=== PATIENT | male | born 1930 | race Caucasian/White ===

== ENCOUNTER 2016-10-18 16:09 | Inpatient (IN) | payer OTHER ==
--- NOTE | 2016-10-18 16:42 | PDOC ---
Attending Attestation - Resident Resident Name: Dee Gayle - ED Attending Attestation I have performed the following: I have examined & evaluated the patient, The case was reviewed & discussed with the resident, I agree w/resident's findings & plan, Exceptions are as noted - HPI HPI: 10/18/16 16:40 dizzy and lightheaded/ vitals stable - Physicial Exam PE: 10/18/16 16:41 non focal neuro exam - Medical Decision Making 10/18/16 16:[address] Arevalo's Assessment and Plan Discharge Disposition - Diagnosis Pre-syncope - Discharge Dispostion Condition at time of disposition: Unchanged/Unknown Last Admission D/C Date: 06/27/08 Admit: Yes
[2016-10-18 17:46] LABS: ALBUMIN 3.5 g/dl (3.4-5.0); ANION GAP 8 (8-16); BILIRUBIN,TOTAL 0.4 mg/dL (0.2-1.0); CALCIUM 8.7 mg/dL (8.5-10.1); CO2 27 mmol/L (21-32); CREATININE 1.4 mg/dL (0.7-1.3); GLUCOSE,RANDOM 127 mg/dL (74-106); SGOT/AST 25 U/L (15-37); SGPT/ALT 37 U/L (12-78)
[2016-10-18 17:47] LABS: ALK PHOS 78 U/L (45-117)
--- NOTE | 2016-10-18 18:55 | PDOC ---
History of Present Illness - General Chief Complaint: Weakness Stated Complaint: SYNCOPE/NEAR SYNCOPE Time Seen by Provider: 10/18/16 16:35 History Source: Patient, Family Exam Limitations: No Limitations - History of Present Illness Initial Comments: 86 yo male who was just seen in the ED and just discharged home with family returns with exacerbated lightheadedness and generalized weakness. He explains that his lightheadedness worsened in the car when they were about to leave the parking lot, and he also felt very weak on standing. He denies any chest pain, shortness of breath, numbness, tingling, focal weakness, difficulty swallowing, difficulty speaking, vision changes, or other recent symptoms. Please see this physician's prior HPI from today for more details. Past History - Past Medical History Allergies/Adverse Reactions: Allergies Allergy/AdvReac Type Severity Reaction Status Date / Time Penicillins Allergy Unknown Rash Verified 10/18/16 16:16 Home Medications: Ambulatory Orders Aspirin [ASA -] 81 mg PO DAILY 02/04/16 Biotin 5,000 mcg PO DAILY 02/04/16 Cholecalciferol (Vitamin D3) [Vitamin D3 -] 2,000 unit PO DAILY 02/04/16 Glucosamine/D3/Boswellia Molly [Osteo Bi-Flex Caplet] 1 each PO DAILY 02/04/16 Multivit-Min/FA/Lycopen/Lutein [Centrum Silver Tablet] 1 each PO DAILY 02/04/16 Simvastatin [Zocor -] 40 mg PO HS 02/04/16 Tamsulosin HCl [Flomax -] 0.4 mg PO DAILY 02/04/16 Vit A/Vit C/Vit E/Zinc/Copper [Preservision Areds Softgel] 1 each PO DAILY 02/03 Chlorthalidone 25 mg PO DAILY 10/18/16 Clonidine HCl 0.1 mg PO DAILY 10/18/16 Diclofenac Sodium [Diclofenac Sodium ER] 100 mg PO DAILY 10/18/16 Ramipril 10 mg PO DAILY 10/18/16 HTN: Yes Kidney Stones: Yes Thyroid Disease: Yes (H/O STONES) - Psycho/Social/Smoking Cessation Hx Anxiety: No Suicidal Ideation: No Smoking History: Never smoked Have you smoked in the past 12 months: No If you are a former smoker, when did you quit?: 50YRS AGO Hx Alcohol Use: No Drug/Substance Use Hx: No Substance Use Type: Alcohol Hx Substance Use Treatment: No Review of Systems - Review of Systems Constitutional: No: Chills, Fever, Unexplained wgt Loss HEENTM: No: Nose Congestion, Throat Pain Respiratory: No: Cough, Shortness of Breath Cardiac (ROS): No: Chest Pain, Palpitations ABD/GI: No: Constipated, Diarrhea, Nausea, Vomiting : No: Burning, Dysuria Musculoskeletal: No: Back Pain, Neck Pain Integumentary: No: Bruising, Rash Neurological: Yes: Weakness (generalized), Unsteady Gait (states d/t lightheadedness), Dizziness (lightheadedness). No: Headache, Numbness, Tingling Endocrine: No: Unexplained Weight Gain, Unexplained Weight Loss *Physical Exam - Vital Signs Last Vital Signs Temp Pulse Resp BP Pulse Ox 97.5 F L 55 L 19 160/67 97 10/18/16 16:16 10/18/16 17:12 10/18/16 16:16 10/18/16 16:16 10/18/16 17:12 - Physical Exam General Appearance: Yes: Nourished, Mild Distress, Other (very pleasant older male appears younger than stated age, appears a bit distraught with the recurrence of lightheadedness) HEENT: positive: EOMI, Normal Voice, Hearing Grossly Normal. negative: Scleral Icterus (R), Scleral Icterus (L), Nasal Congestion Neck: positive: Trachea midline, Supple. negative: Tender, Rigid Respiratory/Chest: positive: Lungs Clear, Normal Breath Sounds. negative: Respiratory Distress, Crackles, Rhonchi, Stridor, Wheezing Cardiovascular: positive: Regular Rhythm, Regular Rate. negative: Edema, Murmur Gastrointestinal/Abdominal: positive: Normal Bowel Sounds, Soft. negative: Tender, Organomegaly, Pulsatile Mass, Guarding Musculoskeletal: positive: Normal Inspection. negative: Decreased Range of Motion, Vertebral Tenderness Extremity: positive: Normal Capillary Refill, Normal Inspection, Normal Range of Motion. negative: Tender, Cyanosis Integumentary: positive: Normal Color, Dry, Warm. 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 negative: Facial Droop, Numbness , Sensory Deficit, Confused, Disoriented Heart Score/ECG Review - History History: Moderately suspicious - Electrocardiogram EKG: Normal - Age Age: >/= 65 - Troponin Troponin: </= normal limit #1 ECG reviewed & interpreted by me at: 17:00 Compared to previous ECG there are: No significant change NSR, rate of 66, mild LAD, poor R-wave progression, no ST-T changes ED Treatment Course - LABORATORY CBC & Chemistry Diagram: 10/20/16 06:20 10/20/16 06:20 - ADDITIONAL ORDERS Additional order review: Laboratory Results 10/18/16 10/18/16 17:05 16:49 Sodium 142 Potassium 4.1 Chloride 107 Carbon Dioxide 27 Anion Gap 8 BUN 33 H Creatinine 1.4 H Creat Clearance w eGFR 47.83 Random Glucose 127 H D Calcium 8.7 Total Bilirubin 0.4 AST 25 ALT 37 Alkaline Phosphatase 78 Troponin I < 0.02 Total Protein 6.0 L Albumin 3.5 Medical Decision Making - Medical Decision Making 86 yo male returns to the ED almost immediately after discharge with recurrence of lightheadedness in car. Unable to stand or walk unassisted now, which is far outside his baseline ( walks w/o walker or cane usually). Labs and EKG remain unremarkable, negative troponin and coags wnl, EKG unchanged. Due to acute onset intractable lightheadedness x hours today and inability to ambulate, Pt is admitted to obs for management. *DC/Admit/Observation/Transfer Diagnosis at time of Disposition: Lightheaded - Discharge Dispostion Condition at time of disposition: Unchanged/Unknown Admit: Yes - Attestations Physician Attestion: I, Dr. Dee Gayle, attest that this document has been prepared under my direction and personally reviewed by me in its entirety. I further attest, that it accurately reflects all work, treatment, procedures and medical decision -making performed by me.
[2016-10-18] MEDS ORDERED: BOSWELLIA SERRA PO SCH (22:15)
[2016-10-18] MEDS ORDERED: GLUCOSAMINE PO SCH (22:15)
[2016-10-18] MEDS ORDERED: PATIENT'S OWN MEDICATION (NON-FORMULARY) (Biotin [Biotin] 5,000 MCG) PO SCH (22:15)
[2016-10-18] MEDS ORDERED: [UNRECOGNIZED DRUG - OTHER] PO SCH (22:15)
[2016-10-18] MEDS ORDERED: D3 PO SCH (22:15)
[2016-10-18] MEDS ORDERED: PATIENT'S OWN MEDICATION (NON-FORMULARY) (Vit A/Vit C/Vit E/Zinc/Copper [Preservision Ared PO SCH (22:15)
[2016-10-18 22:18] VITALS: BMI 31.2
--- NOTE | 2016-10-18 22:30 | HP ---
Admitting History and Physical - Admission Chief Complaint: Dizziness History of Present Illness: 86 y/o male with PMH of HTN, hyperlipidemia, CAD and BPH, has been complaining of dizziness on and off for several months. He has had his hypertensive meds adjusted to avoid low BP and was prescribed Meclizine with inconsistent benefit. For the last few days the symptoms have worsened and are now intractable. There are no associated complaints. History Source: Patient, Medical Record Limitations to Obtaining History: No Limitations - Past Medical History Cardiovascular: Yes: CAD, HTN, Hyperlipdemia Renal/: Yes: BPH - Past Surgical History Past Surgical History: Yes: None - Smoking History Smoking history: Never smoked Have you smoked in the past 12 months: No If you are a former smoker, when did you quit?: 50YRS AGO - Alcohol/Substance Use Hx Alcohol Use: No Home Medications - Allergies Allergies/Adverse Reactions: Allergies Allergy/AdvReac Type Severity Reaction Status Date / Time Penicillins Allergy Unknown Rash Verified 10/18/16 16:16 - Home Medications Home Medications: Ambulatory Orders Aspirin [ASA -] 81 mg PO DAILY 02/04/16 Biotin 5,000 mcg PO DAILY 02/04/16 Cholecalciferol (Vitamin D3) [Vitamin D3 -] 2,000 unit PO DAILY 02/04/16 Glucosamine/D3/Boswellia Molly [Osteo Bi-Flex Caplet] 1 each PO DAILY 02/04/16 Multivit-Min/FA/Lycopen/Lutein [Centrum Silver Tablet] 1 each PO DAILY 02/04/16 Simvastatin [Zocor -] 40 mg PO HS 02/04/16 Tamsulosin HCl [Flomax -] 0.4 mg PO DAILY 02/04/16 Vit A/Vit C/Vit E/Zinc/Copper [Preservision Areds Softgel] 1 each PO DAILY 02/03 Chlorthalidone 25 mg PO DAILY 10/18/16 Clonidine HCl 0.1 mg PO DAILY 10/18/16 Diclofenac Sodium [Diclofenac Sodium ER] 100 mg PO DAILY 10/18/16 Ramipril 10 mg PO DAILY 10/18/16 Family Disease History - Family Disease History Family History: Unremarkable Review of Systems - Review of Systems Constitutional: reports: Weakness Eyes: reports: No Symptoms Cardiovascular: reports: No Symptoms Respiratory: reports: No Symptoms Gastrointestinal: reports: No Symptoms Neurological: reports: Other (Dizziness) Physical Examination Vital Signs: Vital Signs Temperature 98.0 F 10/18/16 22:07 Pulse Rate 73 10/18/16 19:19 Respiratory Rate 18 10/18/16 22:07 Blood Pressure 160/91 10/18/16 19:19 O2 Sat by Pulse Oximetry (%) 98 10/18/16 19:19 Constitutional: Yes: No Distress Neck: Yes: Supple Cardiovascular: Yes: Regular Rate and Rhythm, S1, S2 Respiratory: Yes: CTA Bilaterally Gastrointestinal: Yes: Normal Bowel Sounds, Soft Neurological: Yes: Alert, Oriented. No: Loss of Sensation ...Motor Strength: WNL Imaging - Results Chest X-ray: Report Reviewed Cat Scan: Report Reviewed Problem List - Problems (1) Dizziness Assessment/Plan: Admit to rule out CVA/TIA, neuro evaluation Code(s): R42 - DIZZINESS AND GIDDINESS (2) HTN (hypertension) Assessment/Plan: Controlled, continue current meds Code(s): I10 - ESSENTIAL (PRIMARY) HYPERTENSION Qualifiers: Hypertension type: essential hypertension Qualified Code(s): I10 - Essential (primary) hypertension (3) CAD (coronary artery disease) Assessment/Plan: Asymptomatic Code(s): I25.10 - ATHSCL HEART DISEASE OF [place] CORONARY ARTERY W/O ANG PCTRS Qualifiers: Coronary Disease-Associated Artery/Lesion type: [place] artery (4) BPH (benign prostatic hyperplasia) Assessment/Plan: Cont Flomax Code(s): N40.0 - BENIGN PROSTATIC HYPERPLASIA WITHOUT LOWER URINRY TRACT SYMP
[2016-10-18] MEDS: SODIUM CHLORIDE 1,000 ML IV SCH (23:13)
[2016-10-18] MEDS ORDERED: ONDANSETRON 4 MG/2 ML VIAL IVPB PRN (23:32)
[2016-10-19 08:00] LABS: MCH 31.9 pg (25.7-33.7); MCHC 33.8 g/dl (32.0-35.9); MEAN CELL VOLUME 94.5 fl (80-96); MEAN PLT VOLUME 10.7 fl (7.5-11.1); PLATELET COUNT 113 K/MM3 (134-434); RDW 13.8 % (11.9-15.9); WHITE BLOOD COUNT 6.8 K/mm3 (4.0-10.0)
[2016-10-19 08:20] LABS: ALBUMIN 3.3 g/dl (3.4-5.0); ALK PHOS 71 U/L (45-117); ANION GAP 8 (8-16); BILIRUBIN,TOTAL 0.4 mg/dL (0.2-1.0); CALCIUM 8.2 mg/dL (8.5-10.1); CO2 27 mmol/L (21-32); CREATININE 1.1 mg/dL (0.7-1.3); GLUCOSE,RANDOM 97 mg/dL (74-106); SGOT/AST 19 U/L (15-37); SGPT/ALT 33 U/L (12-78); TOT PROT 5.6 g/dl (6.4-8.2)
[2016-10-19] MEDS: TAMSULOSIN HCL 0.4 MG CAP.ER.24H (FP) PO SCH (09:31)
[2016-10-19] MEDS: ENOXAPARIN NA (PORCINE) 30 MG/0.3 ML DISP.SYRIN SQ SCH (09:32)
[2016-10-19] MEDS: RAMIPRIL 5 MG CAPSULE (FP) PO SCH (09:32)
[2016-10-19] MEDS: cloNIDine HCL 0.1 MG TABLET PO SCH (09:32)
[2016-10-19] MEDS: MULTIVITAMINS THER W-MINERALS COMBO TABLET (FP) PO SCH (09:32)
[2016-10-19] MEDS: CHOLECALCIFEROL (VITAMIN D3) 1,000 UNIT TABLET (FP) PO SCH (09:32)
[2016-10-19] MEDS: ASPIRIN 81 MG CHEWABLE TABLETS PO SCH (09:32)
[2016-10-19] MEDS: DICLOFENAC SODIUM 25 MG TABLET.DR PO SCH ×2 (09:35→10:51)
[2016-10-19] MEDS ORDERED: ACETAMINOPHEN 325 MG TABLET (FP) PO PRN (14:20)
--- NOTE | 2016-10-19 15:51 | CONSULT ---
Consult - text type - Consultation Consultation Note: NEUROLOGY CONSULTATION is greatly appreciated: Events and CT scan reviewed. Discussed with his daughter. 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 PMH sig for HTN, chol, ASHD, BPH on ramipril, ASA, clonidine, tamsulosin and atorvastatin. H/O vertigo in the past but NOT recently active. 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 Yesterday in PT he was supine and doing strengthening exercises (involving Valsalva) when he developed dizziness and nausea. Couldn't sit or walk. Was taken by wheelchair and transferred to our ER where CT was neg and he was discharged to home. However, he was too unsteady to transfer to the car and family returned him to the ER. Patient developed occipital, pressing, headaches which persist. Now, c/o "wooziness," unsteadiness and occipital headache. Nausea has resolved. MYRIAM: No bruits. Cor reg. NEURO: MS/Speech: Normal CN II-XII: Nystagmus on left gaze. Gag OK Motor: No drift or tremor. Normal strength. Reduced KJ's absent AJ's. Downgoing toes. Coord: Min R FTN dystaxia Sensory: Decreased vibration to the ankles. Gait: Stands with assistance. Wide-based stance. Unsteady, R leg stiff. Retropulsive. IMP: Possible posterior fossa/cerebellar CVA Peripheral neuropathy vs LS spinal stenosis. SUGGEST: MRI of brain (C-): attention posterior fossa Cont. ASA for now. OOB to chair with assist Hector (in patient) crescencio on Friday./ Thank you very much, Sarkis Llanos MD
--- NOTE | 2016-10-19 16:41 | PN ---
Progress Note, Physician Chief Complaint: Feels better - Current Medication List Current Medications: Active Medications Acetaminophen (Tylenol -) 1,000 mg PO Q6H PRN PRN Reason: FEVER OR PAIN Aspirin (Asa -) 81 mg PO DAILY [facility] Last Admin: 10/19/16 09:32 Dose: 81 mg Atorvastatin Calcium (Lipitor -) 20 mg PO [facility] Cholecalciferol (Vitamin D3 -) 2,000 unit PO DAILY [facility] Last Admin: 10/19/16 09:32 Dose: 2,000 unit Clonidine (Catapres -) 0.1 mg PO DAILY [facility] Last Admin: 10/19/16 09:32 Dose: 0.1 mg Diclofenac Sodium (Voltaren -) 100 mg PO DAILY [facility] Last Admin: 10/19/16 10:51 Dose: Not Given Enoxaparin Sodium (Lovenox -) 30 mg SQ DAILY [facility] Last Admin: 10/19/16 09:32 Dose: 30 mg Sodium Chloride (Normal Saline -) 1,000 mls @ 75 mls/hr IV ASDIR [facility] Last Admin: 10/18/16 23:13 Dose: 75 mls/hr Multivitamins/Minerals (Theragran-M) 1 each PO DAILY [facility] Last Admin: 10/19/16 09:32 Dose: 1 each Non-Formulary Medication (Biotin [Biotin]) 5,000 mcg PO ASDIR [facility] Non-Formulary Medication (Glucosamine/D3/Boswellia Molly [Osteo Bi-Flex Caplet] ) 1 each PO [facility] Non-Formulary Medication (Vit A/Vit C/Vit E/Zinc/Copper [Preservision Areds Softgel]) 1 each PO [facility] Ondansetron HCl (Zofran Injection) 4 mg IVPB Q8H PRN PRN Reason: NAUSEA AND/OR VOMITING Ramipril (Altace -) 10 mg PO DAILY [facility] Last Admin: 10/19/16 09:32 Dose: 10 mg Tamsulosin HCl (Flomax -) 0.4 mg PO DAILY@0830 [facility] Last Admin: 10/19/16 09:31 Dose: 0.4 mg - Objective Vital Signs: Vital Signs Temperature 97.9 F 10/19/16 09:20 Pulse Rate 70 10/19/16 09:20 Respiratory Rate 20 10/19/16 09:20 Blood Pressure 129/68 10/19/16 09:20 O2 Sat by Pulse Oximetry (%) 98 10/19/16 09:00 Constitutional: Yes: No Distress Neck: Yes: Supple Cardiovascular: Yes: Regular Rate and Rhythm, S1, S2 Respiratory: Yes: CTA Bilaterally Gastrointestinal: Yes: Normal Bowel Sounds, Soft Neurological: Yes: Alert, Oriented. No: Loss of Sensation ...Motor Strength: WNL Labs: CBC, BMP 10/19/16 06:00 10/19/16 06:00 Problem List - Problems (1) Dizziness Assessment/Plan: Seen by neuro, further imaging ordered Code(s): R42 - DIZZINESS AND GIDDINESS (2) HTN (hypertension) Assessment/Plan: Controlled, continue current meds Code(s): I10 - ESSENTIAL (PRIMARY) HYPERTENSION Qualifiers: Hypertension type: essential hypertension Qualified Code(s): I10 - Essential (primary) hypertension
[2016-10-19] MEDS: ACETAMINOPHEN 500 MG TABLET (FP) PO PRN (18:18)
[2016-10-19] MEDS: ATORVASTATIN CA 20 MG TABLET (FP) PO SCH (21:25)
[2016-10-20] MEDS: SODIUM CHLORIDE 1,000 ML IV SCH ×2 (02:34→21:48)
[2016-10-20 07:44] LABS: MCH 31.7 pg (25.7-33.7); MCHC 33.3 g/dl (32.0-35.9); MEAN CELL VOLUME 95.2 fl (80-96); MEAN PLT VOLUME 10.6 fl (7.5-11.1); PLATELET COUNT 120 K/MM3 (134-434); RDW 13.7 % (11.9-15.9); WHITE BLOOD COUNT 6.7 K/mm3 (4.0-10.0)
[2016-10-20 08:14] LABS: ALBUMIN 3.4 g/dl (3.4-5.0); CALCIUM 8.6 mg/dL (8.5-10.1)
[2016-10-20 08:19] LABS: ALK PHOS 70 U/L (45-117); ANION GAP 6 (8-16); BILIRUBIN,TOTAL 0.5 mg/dL (0.2-1.0); CO2 29 mmol/L (21-32); GLUCOSE,RANDOM 96 mg/dL (74-106); SGOT/AST 17 U/L (15-37); SGPT/ALT 34 U/L (12-78); TOT PROT 5.8 g/dl (6.4-8.2)
[2016-10-20] MEDS: cloNIDine HCL 0.1 MG TABLET PO SCH (10:33)
[2016-10-20] MEDS: MULTIVITAMINS THER W-MINERALS COMBO TABLET (FP) PO SCH (10:33)
[2016-10-20] MEDS: RAMIPRIL 5 MG CAPSULE (FP) PO SCH (10:33)
[2016-10-20] MEDS: ENOXAPARIN NA (PORCINE) 30 MG/0.3 ML DISP.SYRIN SQ SCH (10:33)
[2016-10-20] MEDS: ASPIRIN 81 MG CHEWABLE TABLETS PO SCH (10:33)
[2016-10-20] MEDS: TAMSULOSIN HCL 0.4 MG CAP.ER.24H (FP) PO SCH (10:33)
[2016-10-20] MEDS: CHOLECALCIFEROL (VITAMIN D3) 1,000 UNIT TABLET (FP) PO SCH (10:34)
[2016-10-20] MEDS: DICLOFENAC SODIUM 25 MG TABLET.DR PO SCH (10:34)
[2016-10-20] MEDS: ACETAMINOPHEN 500 MG TABLET (FP) PO PRN (10:39)
--- NOTE | 2016-10-20 12:05 | PN ---
Progress Note, Physician Chief Complaint: Had chest pain today - Current Medication List Current Medications: Active Medications Acetaminophen (Tylenol -) 1,000 mg PO Q6H PRN PRN Reason: FEVER OR PAIN Last Admin: 10/20/16 10:39 Dose: 1,000 mg Aspirin (Asa -) 81 mg PO DAILY [facility] Last Admin: 10/20/16 10:33 Dose: 81 mg Atorvastatin Calcium (Lipitor -) 20 mg PO HS [facility] Last Admin: 10/19/16 21:25 Dose: 20 mg Cholecalciferol (Vitamin D3 -) 2,000 unit PO DAILY [facility] Last Admin: 10/20/16 10:34 Dose: 2,000 unit Clonidine (Catapres -) 0.1 mg PO DAILY [facility] Last Admin: 10/20/16 10:33 Dose: 0.1 mg Diclofenac Sodium (Voltaren -) 100 mg PO DAILY [facility] Last Admin: 10/20/16 10:34 Dose: Not Given Enoxaparin Sodium (Lovenox -) 30 mg SQ DAILY [facility] Last Admin: 10/20/16 10:33 Dose: 30 mg Sodium Chloride (Normal Saline -) 1,000 mls @ 75 mls/hr IV ASDIR [facility] Last Admin: 10/20/16 02:34 Dose: Not Given Multivitamins/Minerals (Theragran-M) 1 each PO DAILY [facility] Last Admin: 10/20/16 10:33 Dose: 1 each Ondansetron HCl (Zofran Injection) 4 mg IVPB Q8H PRN PRN Reason: NAUSEA AND/OR VOMITING Ramipril (Altace -) 10 mg PO DAILY [facility] Last Admin: 10/20/16 10:33 Dose: 10 mg Tamsulosin HCl (Flomax -) 0.4 mg PO DAILY@0830 [facility] Last Admin: 10/20/16 10:33 Dose: 0.4 mg - Objective Vital Signs: Vital Signs Temperature 97.8 F 10/20/16 07:33 Pulse Rate 52 L 10/20/16 07:33 Respiratory Rate 20 10/20/16 07:33 Blood Pressure 148/82 10/20/16 07:33 O2 Sat by Pulse Oximetry (%) 98 10/19/16 22:00 Constitutional: Yes: No Distress Neck: Yes: Supple Cardiovascular: Yes: Regular Rate and Rhythm, S1, S2 Respiratory: Yes: CTA Bilaterally Gastrointestinal: Yes: Normal Bowel Sounds, Soft Neurological: Yes: Alert, Oriented. No: Loss of Sensation Labs: CBC, BMP 10/20/16 06:20 10/20/16 06:20 Problem List - Problems (1) Dizziness Assessment/Plan: MRI unremarkable, neuro f/u in AM Code(s): R42 - DIZZINESS AND GIDDINESS (2) CAD (coronary artery disease) Assessment/Plan: Had chest pain today, lasting a few seconds, toponin negative. EKG unremarkable , will get chesy X ray, will get cardiology eval Code(s): I25.10 - ATHSCL HEART DISEASE OF [place] CORONARY ARTERY W/O ANG PCTRS Qualifiers: Coronary Disease-Associated Artery/Lesion type: [place] artery [place] vs. transplanted heart: [place] heart Associated angina: without angina Qualified Code(s): I25.10 - Atherosclerotic heart disease of [place] coronary artery without angina pectoris
[2016-10-20 17:27] LABS: TROPONIN I 0.02 ng/ml (0.00-0.05)
[2016-10-20] MEDS: ATORVASTATIN CA 20 MG TABLET (FP) PO SCH (21:48)
[2016-10-21 07:07] LABS: MCH 31.7 pg (25.7-33.7); MCHC 33.6 g/dl (32.0-35.9); MEAN CELL VOLUME 94.3 fl (80-96); MEAN PLT VOLUME 10.3 fl (7.5-11.1); PLATELET COUNT 117 K/MM3 (134-434); RDW 13.5 % (11.9-15.9); WHITE BLOOD COUNT 7.2 K/mm3 (4.0-10.0)
[2016-10-21 07:28] LABS: ALBUMIN 3.3 g/dl (3.4-5.0); ANION GAP 7 (8-16); BILIRUBIN,TOTAL 0.5 mg/dL (0.2-1.0); CALCIUM 8.5 mg/dL (8.5-10.1); CO2 27 mmol/L (21-32); CREATININE 0.9 mg/dL (0.7-1.3); GLUCOSE,RANDOM 91 mg/dL (74-106); SGOT/AST 20 U/L (15-37); SGPT/ALT 32 U/L (12-78); TOT PROT 5.5 g/dl (6.4-8.2)
[2016-10-21 07:29] LABS: ALK PHOS 65 U/L (45-117)
[2016-10-21] MEDS: TAMSULOSIN HCL 0.4 MG CAP.ER.24H (FP) PO SCH (08:45)
[2016-10-21] MEDS ORDERED: PT OWN MED DRAWER 7, Y5N ONE (09:28)
[2016-10-21] MEDS: cloNIDine HCL 0.1 MG TABLET PO SCH (09:33)
[2016-10-21] MEDS: RAMIPRIL 5 MG CAPSULE (FP) PO SCH (09:33)
[2016-10-21] MEDS: ASPIRIN 81 MG CHEWABLE TABLETS PO SCH (09:33)
[2016-10-21] MEDS: CHOLECALCIFEROL (VITAMIN D3) 1,000 UNIT TABLET (FP) PO SCH (09:33)
[2016-10-21] MEDS: MULTIVITAMINS THER W-MINERALS COMBO TABLET (FP) PO SCH (09:33)
[2016-10-21] MEDS: ENOXAPARIN NA (PORCINE) 30 MG/0.3 ML DISP.SYRIN SQ SCH (09:33)
[2016-10-21] MEDS: DICLOFENAC SODIUM 25 MG TABLET.DR PO SCH (09:34)
--- NOTE | 2016-10-21 09:51 | EKG ---
Test Reason : Blood Pressure : / mmHG Vent. Rate : 066 BPM Atrial Rate : 066 BPM P-R Int : 216 ms QRS Dur : 092 ms QT Int : 408 ms P-R-T Axes : 040 -38 043 degrees QTc Int : 427 ms SINUS RHYTHM WITH 1ST DEGREE A-V BLOCK LEFT AXIS DEVIATION CANNOT RULE OUT SEPTAL INFARCT (CITED ON OR BEFORE 05-FEB-2007) ABNORMAL ECG WHEN COMPARED WITH ECG OF 18-OCT-2016 12:37, NO SIGNIFICANT CHANGE WAS FOUND Confirmed by MONICA WILLIS MD ([id number]) on 10/21/2016 9:51:10 AM Referred By: Confirmed By:MONICA WILLIS MD
--- NOTE | 2016-10-21 10:17 | CON.CARD ---
Consult Consult Specialty:: Cardiology Referred by:: Dr. 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 H/O vertigo in the past but NOT recently active. 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 He was referred from PT he was supine and doing strengthening exercises ( involving Valsalva) when he developed dizziness, diaphioesis, nausea w/o emesis or true syncope. He was taken by wheelchair and transferred to ER where CT was neg and he was discharged to home, but returned too unsteady to transfer to the car and family returned him to the ER. He also reports progressive dyspnea on exertion and exercise intolerance over last several months. - History Source History Provided By: Patient Limitations to Obtaining History: No Limitations - Past Medical History Cardio/Vascular: Yes: CAD, HTN, Hyperlipdemia Renal/: Yes: BPH - Past Surgical History Past Surgical History: Yes: None - Alcohol/Substance Use Hx Alcohol Use: No - Smoking History Smoking history: Never smoked Have you smoked in the past 12 months: No If you are a former smoker, when did you quit?: 50YRS AGO Home Medications - Allergies Allergies/Adverse Reactions: Allergies Allergy/AdvReac Type Severity Reaction Status Date / Time Penicillins Allergy Unknown Rash Verified 10/18/16 16:16 - Home Medications Home Medications: Ambulatory Orders Aspirin [ASA -] 81 mg PO DAILY 02/04/16 Biotin 5,000 mcg PO DAILY 02/04/16 Cholecalciferol (Vitamin D3) [Vitamin D3 -] 2,000 unit PO DAILY 02/04/16 Glucosamine/D3/Boswellia Molly [Osteo Bi-Flex Caplet] 1 each PO DAILY 02/04/16 Multivit-Min/FA/Lycopen/Lutein [Centrum Silver Tablet] 1 each PO DAILY 02/04/16 Simvastatin [Zocor -] 40 mg PO HS 02/04/16 Tamsulosin HCl [Flomax -] 0.4 mg PO DAILY 02/04/16 Vit A/Vit C/Vit E/Zinc/Copper [Preservision Areds Softgel] 1 each PO DAILY 02/03 Chlorthalidone 25 mg PO DAILY 10/18/16 Clonidine HCl 0.1 mg PO DAILY 10/18/16 Diclofenac Sodium [Diclofenac Sodium ER] 100 mg PO DAILY 10/18/16 Ramipril 10 mg PO DAILY 10/18/16 Review of Systems - Review of Systems Constitutional: reports: Diaphoresis Gastrointestinal: reports: Nausea Neurological: reports: Dizziness Vital Signs: Vital Signs Temperature 97.4 F L 10/21/16 07:14 Pulse Rate 49 L 10/21/16 07:14 Respiratory Rate 20 10/21/16 07:14 Blood Pressure 157/79 10/21/16 07:14 O2 Sat by Pulse Oximetry (%) 98 10/20/16 20:45 Constitutional: Yes: No Distress, Calm Neck: Yes: Supple Respiratory: Yes: Regular, Diminished Gastrointestinal: Yes: Normal Bowel Sounds, Soft, Abdomen, Obese Cardiovascular: Yes: Regular Rate and Rhythm JVD: No Carotid Bruit: No Heart Sounds: Yes: S1, S2 Edema: No - Other Data Labs, Other Data: CBC, BMP 10/21/16 05:35 10/21/16 05:35 Troponin, BNP 10/20/16 16:30 Troponin I 0.02 Troponin, BNP 10/20/16 16:30 Troponin I 0.02 Imaging - Results Chest X-ray: Report Reviewed (NAD) MRI: Report Reviewed (Brain MRI: No stroke) Problem List - Problems (1) HTN (hypertension) Code(s): I10 - ESSENTIAL (PRIMARY) HYPERTENSION Qualifiers: Hypertension type: essential hypertension Qualified Code(s): I10 - Essential (primary) hypertension (2) Pre-syncope Code(s): R55 - SYNCOPE AND COLLAPSE (3) Hyperlipidemia Code(s): E78.5 - HYPERLIPIDEMIA, UNSPECIFIED Qualifiers: Hyperlipidemia type: pure hypercholesterolemia Qualified Code(s): E78.00 - Pure hypercholesterolemia, unspecified; E78.0 - Pure hypercholesterolemia (4) Exertional dyspnea Code(s): R06.09 - OTHER FORMS OF DYSPNEA Assessment/Plan 1. Dizziness with typical prodromal sxs for vasovagal etiology, ruled out for possible posterior fossa/cerebellar CVA 2. Peripheral neuropathy vs LS spinal stenosis. 3. Hypertensive cardiovascular disease 4. Hyperlipidemia 5. Dyspnea on exertion P:1. ASA 81 qd, Lipitor 20 qhs, clonidine 0.1 qd, Altace 10 qd, chlorthalidone d /sabine 2. F/u echocardiogram to assess ventricular and valve fxn, spacer type bar and segment r/ o pause, pharm stress r/o ischemia, may be performed as outpatient 3. Check orthostatic vital signs, reviewed abortive maneuvers to undertake once prodromal sxs have been experienced 4. Further recommendations to follow, thank you for consultative opportunity
--- NOTE | 2016-10-21 12:38 | PN ---
Progress Note, Physician Chief Complaint: No new complaints - Current Medication List Current Medications: Active Medications Acetaminophen (Tylenol -) 1,000 mg PO Q6H PRN PRN Reason: FEVER OR PAIN Last Admin: 10/20/16 10:39 Dose: 1,000 mg Aspirin (Asa -) 81 mg PO DAILY [facility] Last Admin: 10/21/16 09:33 Dose: 81 mg Atorvastatin Calcium (Lipitor -) 20 mg PO HS [facility] Last Admin: 10/20/16 21:48 Dose: 20 mg Cholecalciferol (Vitamin D3 -) 2,000 unit PO DAILY [facility] Last Admin: 10/21/16 09:33 Dose: 2,000 unit Clonidine (Catapres -) 0.1 mg PO DAILY [facility] Last Admin: 10/21/16 09:33 Dose: 0.1 mg Diclofenac Sodium (Voltaren -) 100 mg PO DAILY [facility] Last Admin: 10/21/16 09:34 Dose: 100 mg Enoxaparin Sodium (Lovenox -) 30 mg SQ DAILY [facility] Last Admin: 10/21/16 09:33 Dose: 30 mg Sodium Chloride (Normal Saline -) 1,000 mls @ 75 mls/hr IV ASDIR [facility] Last Admin: 10/20/16 21:48 Dose: 75 mls/hr Multivitamins/Minerals (Theragran-M) 1 each PO DAILY [facility] Last Admin: 10/21/16 09:33 Dose: 1 each Ondansetron HCl (Zofran Injection) 4 mg IVPB Q8H PRN PRN Reason: NAUSEA AND/OR VOMITING Ramipril (Altace -) 10 mg PO DAILY [facility] Last Admin: 10/21/16 09:33 Dose: 10 mg Tamsulosin HCl (Flomax -) 0.4 mg PO DAILY@0830 [facility] Last Admin: 10/21/16 08:45 Dose: 0.4 mg - Objective Vital Signs: Vital Signs Temperature 97.4 F L 10/21/16 07:14 Pulse Rate 49 L 10/21/16 07:14 Respiratory Rate 20 10/21/16 07:14 Blood Pressure 157/79 10/21/16 07:14 O2 Sat by Pulse Oximetry (%) 98 10/20/16 20:45 Constitutional: Yes: No Distress Neck: Yes: Supple Cardiovascular: Yes: Regular Rate and Rhythm, S1, S2 Respiratory: Yes: CTA Bilaterally Gastrointestinal: Yes: Normal Bowel Sounds, Soft Neurological: Yes: Alert, Oriented Labs: CBC, BMP 10/21/16 05:35 10/21/16 05:35 Problem List - Problems (1) Dizziness Assessment/Plan: MRI unremarkable, neuro f/u in AM Code(s): R42 - DIZZINESS AND GIDDINESS (2) CAD (coronary artery disease) Assessment/Plan: Echo shows diastolic dysfunction, seen by cardiology Code(s): I25.10 - ATHSCL HEART DISEASE OF [place] CORONARY ARTERY W/O ANG PCTRS Qualifiers: Coronary Disease-Associated Artery/Lesion type: [place] artery [place] vs. transplanted heart: [place] heart Associated angina: without angina Qualified Code(s): I25.10 - Atherosclerotic heart disease of [place] coronary artery without angina pectoris
[2016-10-21] MEDS: ACETAMINOPHEN 500 MG TABLET (FP) PO PRN (16:31)
[2016-10-21] MEDS: ATORVASTATIN CA 20 MG TABLET (FP) PO SCH (21:21)
[2016-10-21] MEDS: SODIUM CHLORIDE 1,000 ML IV SCH (21:22)
[2016-10-22 07:39] LABS: MCH 31.7 pg (25.7-33.7); MCHC 33.8 g/dl (32.0-35.9); MEAN CELL VOLUME 93.8 fl (80-96); MEAN PLT VOLUME 10.2 fl (7.5-11.1); PLATELET COUNT 112 K/MM3 (134-434); RDW 13.5 % (11.9-15.9); WHITE BLOOD COUNT 6.8 K/mm3 (4.0-10.0)
[2016-10-22 07:55] LABS: CALCIUM 8.2 mg/dL (8.5-10.1)
[2016-10-22 08:02] LABS: ALBUMIN 3.2 g/dl (3.4-5.0); ALK PHOS 66 U/L (45-117); ANION GAP 5 (8-16); BILIRUBIN,TOTAL 0.5 mg/dL (0.2-1.0); CO2 28 mmol/L (21-32); GLUCOSE,RANDOM 89 mg/dL (74-106); SGOT/AST 15 U/L (15-37); SGPT/ALT 29 U/L (12-78); TOT PROT 5.4 g/dl (6.4-8.2)
[2016-10-22] MEDS ORDERED: PT OWN MED DRAWER 7, Y5N ONE (09:04)
[2016-10-22] MEDS: RAMIPRIL 5 MG CAPSULE (FP) PO SCH (09:17)
[2016-10-22] MEDS: MULTIVITAMINS THER W-MINERALS COMBO TABLET (FP) PO SCH (09:17)
[2016-10-22] MEDS: CHOLECALCIFEROL (VITAMIN D3) 1,000 UNIT TABLET (FP) PO SCH (09:17)
[2016-10-22] MEDS: ENOXAPARIN NA (PORCINE) 30 MG/0.3 ML DISP.SYRIN SQ SCH (09:18)
[2016-10-22] MEDS: TAMSULOSIN HCL 0.4 MG CAP.ER.24H (FP) PO SCH (09:18)
[2016-10-22] MEDS: ASPIRIN 81 MG CHEWABLE TABLETS PO SCH (09:18)
[2016-10-22] MEDS: cloNIDine HCL 0.1 MG TABLET PO SCH (09:18)
[2016-10-22] MEDS: DICLOFENAC SODIUM 25 MG TABLET.DR PO SCH (10:41)
--- NOTE | 2016-10-22 11:31 | PN ---
Progress Note (short form) - Note Progress Note: PULMONARY CONSULTATION DICTATED 10/22/16 IMP DYSPNEA ? ASHD,DIASTOLIC DYSFUNCTION PULMONARY HTN HTN NEAR SYNCOPE HYPERCHOLESTEROLEMIA [place] ON CPAP PLAN CONT CURRENT CARDIAC MEDS STRESS TEST CPAP D-DIMER DR BRAND Problem List - Problems (1) BPH (benign prostatic hyperplasia) Code(s): N40.0 - BENIGN PROSTATIC HYPERPLASIA WITHOUT LOWER URINRY TRACT SYMP (2) CAD (coronary artery disease) Code(s): I25.10 - ATHSCL HEART DISEASE OF [place] CORONARY ARTERY W/O ANG PCTRS Qualifiers: Coronary Disease-Associated Artery/Lesion type: [place] artery [place] vs. transplanted heart: [place] heart Associated angina: without angina Qualified Code(s): I25.10 - Atherosclerotic heart disease of [place] coronary artery without angina pectoris (3) Dizziness Code(s): R42 - DIZZINESS AND GIDDINESS (4) HTN (hypertension) Code(s): I10 - ESSENTIAL (PRIMARY) HYPERTENSION Qualifiers: Hypertension type: essential hypertension Qualified Code(s): I10 - Essential (primary) hypertension (5) Hyperlipidemia Code(s): E78.5 - HYPERLIPIDEMIA, UNSPECIFIED Qualifiers: Hyperlipidemia type: pure hypercholesterolemia Qualified Code(s): E78.00 - Pure hypercholesterolemia, unspecified; E78.0 - Pure hypercholesterolemia (6) Pre-syncope Code(s): R55 - SYNCOPE AND COLLAPSE (7) Pulmonary hypertension Code(s): I27.2 - OTHER SECONDARY PULMONARY HYPERTENSION (8) Exertional dyspnea Code(s): R06.09 - OTHER FORMS OF DYSPNEA (9) Diastolic dysfunction Code(s): I51.9 - HEART DISEASE, UNSPECIFIED
--- NOTE | 2016-10-22 12:20 | PN ---
Progress Note, Physician Chief Complaint: Events noted Not in distress this am History of Present Illness: Patient was seen and examined. Awake and alert. Chart was reviewed Less shortness of breath. Denies chest pain or palpitations Ambulated this am during physical therapy - Current Medication List Current Medications: Active Medications Acetaminophen (Tylenol -) 1,000 mg PO Q6H PRN PRN Reason: FEVER OR PAIN Last Admin: 10/21/16 16:31 Dose: 1,000 mg Aspirin (Asa -) 81 mg PO DAILY [facility] Last Admin: 10/22/16 09:18 Dose: 81 mg Atorvastatin Calcium (Lipitor -) 20 mg PO HS [facility] Last Admin: 10/21/16 21:21 Dose: 20 mg Cholecalciferol (Vitamin D3 -) 2,000 unit PO DAILY [facility] Last Admin: 10/22/16 09:17 Dose: 2,000 unit Clonidine (Catapres -) 0.1 mg PO DAILY [facility] Last Admin: 10/22/16 09:18 Dose: 0.1 mg Diclofenac Sodium (Voltaren -) 100 mg PO DAILY [facility] Last Admin: 10/22/16 10:41 Dose: 100 mg Enoxaparin Sodium (Lovenox -) 30 mg SQ DAILY [facility] Last Admin: 10/22/16 09:18 Dose: 30 mg Sodium Chloride (Normal Saline -) 1,000 mls @ 75 mls/hr IV ASDIR [facility] Last Admin: 10/21/16 21:22 Dose: 75 mls/hr Multivitamins/Minerals (Theragran-M) 1 each PO DAILY [facility] Last Admin: 10/22/16 09:17 Dose: 1 each Ondansetron HCl (Zofran Injection) 4 mg IVPB Q8H PRN PRN Reason: NAUSEA AND/OR VOMITING Ramipril (Altace -) 10 mg PO DAILY [facility] Last Admin: 10/22/16 09:17 Dose: 10 mg Tamsulosin HCl (Flomax -) 0.4 mg PO DAILY@0830 [facility] Last Admin: 10/22/16 09:18 Dose: Not Given - Objective Vital Signs: Vital Signs Temperature 98.2 F 10/22/16 09:19 Pulse Rate 73 10/22/16 09:19 Respiratory Rate 22 10/22/16 09:19 Blood Pressure 157/68 10/22/16 09:19 O2 Sat by Pulse Oximetry (%) 96 10/21/16 21:00 Neck: Yes: Supple Cardiovascular: Yes: Regular Rate and Rhythm, S1, S2 Respiratory: Yes: Diminished Gastrointestinal: Yes: Normal Bowel Sounds, Soft. No: Tenderness Edema: No Additional Findings/Remarks: - Review of Systems Constitutional: denies: Chills, Fever Cardiovascular: denies: Chest Pain. denies: Palpitations, (+) Shortness of Breath - improved Respiratory: denies: Cough, Hemoptysis, Orthopnea, PND, (+) SOB, SOB on Exertion - improved Gastrointestinal: denies: Nausea, Vomiting. denies: Abdominal Pain, Constipation, Diarrhea, Melena, Rectal Bleeding Neurological: denies: Dizziness, Headache, Seizure, Syncope Labs: CBC, BMP 10/22/16 05:35 10/22/16 05:35 - ....Imaging Other: Report Reviewed (Echocardiography revealed normal left ventricular systolic function, impaired relaxation with diastolic dysfunction, mild pulmonary HTN, mild TR and moderate AR) Problem List - Problems (1) CAD (coronary artery disease) Code(s): I25.10 - ATHSCL HEART DISEASE OF [place] CORONARY ARTERY W/O ANG PCTRS Qualifiers: Coronary Disease-Associated Artery/Lesion type: [place] artery [place] vs. transplanted heart: [place] heart Associated angina: without angina Qualified Code(s): I25.10 - Atherosclerotic heart disease of [place] coronary artery without angina pectoris (2) Diastolic dysfunction Code(s): I51.9 - HEART DISEASE, UNSPECIFIED (3) Dizziness Code(s): R42 - DIZZINESS AND GIDDINESS (4) Exertional dyspnea Code(s): R06.09 - OTHER FORMS OF DYSPNEA (5) HTN (hypertension) Code(s): I10 - ESSENTIAL (PRIMARY) HYPERTENSION Qualifiers: Hypertension type: essential hypertension Qualified Code(s): I10 - Essential (primary) hypertension (6) Hyperlipidemia Code(s): E78.5 - HYPERLIPIDEMIA, UNSPECIFIED Qualifiers: Hyperlipidemia type: pure hypercholesterolemia Qualified Code(s): E78.00 - Pure hypercholesterolemia, unspecified; E78.0 - Pure hypercholesterolemia (7) Pulmonary hypertension Code(s): I27.2 - OTHER SECONDARY PULMONARY HYPERTENSION Assessment/Plan 1. Dizziness currently resolved, etiology to be determined 2. Peripheral neuropathy vs lumbar/sacral spinal stenosis. 3. HTN/Hypertensive cardiovascular disease 4. Hyperlipidemia 5. Dyspnea on exertion with underlying history of obstructive sleep apnea and echocardiography finding of mild diastolic dysfunction and mild pulmonary hypertension, rule out coronary artery disease 6. Aortic valve regurgitation PLAN: 1. ASA 81 qd, Lipitor 20 qhs, clonidine 0.1 qd and Altace 10 qd. May add Amlodipine for additional BP control 2. Echocardiography reviewed. Consider nuclear myocardial perfusion imaging - consider pharmacological stress 3. Continue CPAP. Further pulmonary evaluation in progress 4. Monitor on telemetry and check orthostasis Further plans are to follow Noah Matta MD
--- NOTE | 2016-10-22 13:47 | CONS ---
DATE OF CONSULTATION: REFERRING PHYSICIAN: HISTORY: The patient is an 86-year-old white male with a past medical history of hypertension, hypercholesterolemia, ASHD, BPH admitted to [facility] after developing dizziness, diaphoresis, nausea without emesis, syncope during strengthening exercises at . Apparently, he was taken by wheelchair to the emergency room. He had a CT of the head, which was negative. He was discharged. When he went to his car in the parking lot, he felt very unsteady and unable to transfer to the car at which time he was sent back to the emergency room and subsequently admitted for further evaluation. He also complains of dyspnea on exertion as well as some chest heaviness and pressure. He denies any nausea, vomiting, fevers, or chills. He noticed for the past 2 months or so he has had progressive exercise intolerance. He says he ambulates about 1/2 block and develops severe dyspnea, which he is unable to proceed before resting. He denies any chest pain. He has occasional chest discomfort associated with this. He went to a office mover a few months ago and had a PFT and was told it was normal. Of note, he also had sleep studies 2 months ago for which he was noted to have obstructive sleep apnea. The patient has a history of smoking many, many years ago. 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 He denies any recent travel. There is no DVT or PE in the past. In current hospitalization, he underwent an echocardiogram, which revealed mild pulmonary hypertension with right ventricular systolic pressure of 30-40 and also mild grade 1 diastolic dysfunction. The patient denies any orthopnea or PND. Denies any hemoptysis. Denies any history of pneumonia in the past. Denies any fevers, weight loss, night sweats. Denies any history of DVT or PE in the past. PAST MEDICAL HISTORY: Again, includes hypertension, ASHD, obstructive sleep apnea on CPAP, hypercholesterolemia, and BPH. REVIEW OF SYSTEMS: No orthopnea, no PND. Positive dyspnea on exertion. No chest pain, no palpitations, no nausea, no vomiting, no abdominal pain. CURRENT MEDICATIONS: Include Zofran, Flomax, Tylenol, Altace, Lovenox, Catapres, Lipitor, Theragran-M, aspirin, Voltaren, and vitamin D3. PHYSICAL EXAMINATION: General: The patient is a well-developed, well-nourished male awake and alert. Appears younger than stated age in no acute distress. Vital Signs: He is currently afebrile. Blood pressure 157/68, respiratory rate 22, O2 saturation 96% on 2 L. HEENT: Normocephalic and atraumatic. Neck: Supple. Heart: Regular S1, S2. Chest: Clear. Abdomen: Soft. Bowel sounds are positive. Extremities: No cyanosis or edema. LABORATORIES: WBC 6.8, hemoglobin 12.3, hematocrit 36.5 with a platelet count of 112,000. BUN 17, creatinine 1. Troponin 0.02. Chest x-ray: No acute infiltrates and/or effusions. IMPRESSION: 1. Dyspnea secondary to diastolic dysfunction. 2. Questionable arteriosclerotic heart disease. 3. Pulmonary hypertension. 4. Obstructive sleep apnea on CPAP. 5. Hypercholesterolemia. 6. Benign prostatic hypertrophy. 7. Hypertension. PLAN: Continue O2. Continue cardiac workup. Obtain D-dimer. Continue CPAP. LIANE BRAND M.D. [id number]
[2016-10-22] MEDS: amLODIPine BESYLATE 5 MG TABLET (FP) PO SCH (14:29)
--- NOTE | 2016-10-22 17:45 | PN ---
Progress Note, Physician Chief Complaint: No new complaints - Current Medication List Current Medications: Active Medications Acetaminophen (Tylenol -) 1,000 mg PO Q6H PRN PRN Reason: FEVER OR PAIN Last Admin: 10/21/16 16:31 Dose: 1,000 mg Amlodipine Besylate (Norvasc -) 5 mg PO DAILY [facility] Last Admin: 10/22/16 14:29 Dose: 5 mg Aspirin (Asa -) 81 mg PO DAILY [facility] Last Admin: 10/22/16 09:18 Dose: 81 mg Atorvastatin Calcium (Lipitor -) 20 mg PO HS [facility] Last Admin: 10/21/16 21:21 Dose: 20 mg Cholecalciferol (Vitamin D3 -) 2,000 unit PO DAILY [facility] Last Admin: 10/22/16 09:17 Dose: 2,000 unit Clonidine (Catapres -) 0.1 mg PO DAILY [facility] Last Admin: 10/22/16 09:18 Dose: 0.1 mg Diclofenac Sodium (Voltaren -) 100 mg PO DAILY [facility] Last Admin: 10/22/16 10:41 Dose: 100 mg Enoxaparin Sodium (Lovenox -) 30 mg SQ DAILY [facility] Last Admin: 10/22/16 09:18 Dose: 30 mg Multivitamins/Minerals (Theragran-M) 1 each PO DAILY [facility] Last Admin: 10/22/16 09:17 Dose: 1 each Ondansetron HCl (Zofran Injection) 4 mg IVPB Q8H PRN PRN Reason: NAUSEA AND/OR VOMITING Ramipril (Altace -) 10 mg PO DAILY [facility] Last Admin: 10/22/16 09:17 Dose: 10 mg Tamsulosin HCl (Flomax -) 0.4 mg PO DAILY@0830 [facility] Last Admin: 10/22/16 09:18 Dose: Not Given - Objective Vital Signs: Vital Signs Temperature 98.3 F 10/22/16 13:46 Pulse Rate 66 10/22/16 14:10 Respiratory Rate 20 10/22/16 13:46 Blood Pressure 174/97 10/22/16 13:46 O2 Sat by Pulse Oximetry (%) 97 10/22/16 14:20 Constitutional: Yes: No Distress Neck: Yes: Supple Cardiovascular: Yes: Regular Rate and Rhythm, S1, S2 Respiratory: Yes: CTA Bilaterally Gastrointestinal: Yes: Normal Bowel Sounds, Soft Neurological: Yes: Alert, Oriented ...Motor Strength: WNL Labs: CBC, BMP 10/22/16 05:35 10/22/16 05:35 Problem List - Problems (1) Dizziness Assessment/Plan: MRI unremarkable, walking with walker Code(s): R42 - DIZZINESS AND GIDDINESS (2) CAD (coronary artery disease) Assessment/Plan: Cardiology planning stress test, discussed with pt and family Code(s): I25.10 - ATHSCL HEART DISEASE OF [place] CORONARY ARTERY W/O ANG PCTRS Qualifiers: Coronary Disease-Associated Artery/Lesion type: [place] artery [place] vs. transplanted heart: [place] heart Associated angina: without angina Qualified Code(s): I25.10 - Atherosclerotic heart disease of [place] coronary artery without angina pectoris
[2016-10-22] MEDS: ATORVASTATIN CA 20 MG TABLET (FP) PO SCH (22:21)
[2016-10-23 06:58] LABS: MCH 31.8 pg (25.7-33.7); MCHC 33.9 g/dl (32.0-35.9); MEAN CELL VOLUME 93.6 fl (80-96); MEAN PLT VOLUME 9.7 fl (7.5-11.1); PLATELET COUNT 118 K/MM3 (134-434); RDW 13.5 % (11.9-15.9); WHITE BLOOD COUNT 7.2 K/mm3 (4.0-10.0)
[2016-10-23 07:54] LABS: ALBUMIN 3.3 g/dl (3.4-5.0); ALK PHOS 70 U/L (45-117); ANION GAP 4 (8-16); BILIRUBIN,TOTAL 0.4 mg/dL (0.2-1.0); CALCIUM 8.8 mg/dL (8.5-10.1); CO2 31 mmol/L (21-32); GLUCOSE,RANDOM 89 mg/dL (74-106); SGOT/AST 17 U/L (15-37); SGPT/ALT 31 U/L (12-78); TOT PROT 5.7 g/dl (6.4-8.2)
--- NOTE | 2016-10-23 08:17 | CONS ---
DATE OF CONSULTATION: 10/22/2016 HISTORY OF PRESENT ILLNESS: Patient is an 86-year-old man who was admitted with dizziness. Patient has a past medical history of hypertension, hyperlipidemia, coronary artery disease, and benign prostatic hypertrophy. He developed worsening dizziness which has been going on for a few months. He was found to have low blood pressure and had his medication recently altered. He also was prescribed meclizine without any significant improvement. On admission, patient underwent neurologic consultation with Dr. Llanos and brain MRI failed to demonstrate any intracranial pathology. On admission, patient did have some elevation in his BUN 33 and creatinine 1.4. He was given fluid hydration. Followup blood work done on October 22 showed decreased total protein 5.4 and albumin 3.2 but normalization of BUN to 17, creatinine 1.0. Calcium was low at 8.2 but does correct for low albumin level. Otherwise, his chemistry was unremarkable. CBC showed slightly low platelet count of 112 but otherwise WBC 6.8, hemoglobin 12.3, and hematocrit 36.5. Patient reports feeling improvement but did undergo cardiac workup, including an echocardiogram which demonstrated normal left ventricular size and function. There may have been a slight grade 1 diastolic dysfunction noted and moderate aortic regurgitation as well as some mild other abnormalities. Patient seen by Physical Therapy. Able to stand and ambulate, but Physical Therapy recommended using a walker. Patient has no numbness, tingling in the upper or lower extremities. No joint arthralgias. No neck or back pain and minimal lightheadedness. No joel dizziness. REVIEW OF PAST MEDICAL AND SURGICAL HISTORY: As above, history of hypertension, hypercholesterolemia, benign prostatic hypertrophy, and possible atherosclerotic heart disease. SOCIAL HISTORY: Patient lives with his in a private house. Got stairs to get into the house from the garage as well as stairs to the 2nd level. Premorbidly independent. Current function as above. Ambulating about 100 feet with a rolling walker. 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 REVIEW OF SYSTEMS: Again, some lightheadedness but no joel dizziness. No headache. No blurry vision, double vision that is new. No nausea, vomiting, difficulty swallowing, difficulty chewing. No chest pain, shortness of breath, dyspnea on exertion, cough, or abdominal discomfort. No bowel, bladder incontinence. No numbness, tingling, or isolated weakness in the upper or lower extremities. No joint arthralgias. No neck or low back pain. No rash. No fever or chills. No significant weight loss or weight gain. PHYSICAL EXAMINATION:General: Patient is a friendly man seen both sitting, standing, and ambulating. HEENT: He is normocephalic and atraumatic. Extraocular muscles appear intact. Neck: Supple. Extremities: Without any pitting edema or calf tenderness. Neuromuscular: He is awake, alert, oriented x3. Seems to have good insight into his medical condition and safety awareness. Cranial nerves II-XII appear grossly intact. He has some mild arthritic changes in the upper extremities, but they are not limiting with good strength and range in the upper extremities. In the lower extremities, he has at least 4+/5 strength in the proximal lower extremities. Mild crepitus in the left more than the right knee but no joint arthralgias. Good range of motion and strength with dorsiflexion, plantarflexion. Normal sensation to light touch and pinprick throughout the upper and lower extremities. Patient is able to stand and ambulate with slightly unsteady gait without device but rolling walker much steadier. OVERALL IMPRESSION: 1. Deficits mobility, activities of daily living. 2. Lightheadedness, improved. 3. Status post acute renal insufficiency. 4. History of hypertension. 5. History of hyperlipidemia. 6. Possible atherosclerotic heart disease. 7. Knee osteoarthritis which has been treated with injections of Euflexxa in the past. 8. Decreased total protein and albumin level. 9. Mild thrombocytopenia. PLAN, SUGGESTION: 1. Continue physical therapy. 2. Out of bed to chair. 3. Ambulate on unit. 4. Home with outpatient therapy. 5. Would recommend a walker. 6. Bowel regimen. Patient is moving his bowels well. 7. Consider dietary consultation. 8. Skin precautions. Avoid heel sacral pressure. Thank you for this referral. VERNA RIVERA M.D. [id number]
[2016-10-23] MEDS: TAMSULOSIN HCL 0.4 MG CAP.ER.24H (FP) PO SCH ×2 (08:30→13:32)
[2016-10-23] MEDS ORDERED: DIPYRIDAMOLE STRESS TEST 50 MG in DEXTROSE 5%-WATER - 40 ML IVPB ONE ×2 (09:30→10:00)
[2016-10-23] MEDS: ENOXAPARIN NA (PORCINE) 30 MG/0.3 ML DISP.SYRIN SQ SCH ×2 (10:16→13:34)
[2016-10-23] MEDS: ASPIRIN 81 MG CHEWABLE TABLETS PO SCH ×2 (10:16→13:31)
[2016-10-23] MEDS: cloNIDine HCL 0.1 MG TABLET PO SCH ×2 (10:16→13:32)
[2016-10-23] MEDS: RAMIPRIL 5 MG CAPSULE (FP) PO SCH ×2 (10:16→13:32)
[2016-10-23] MEDS: MULTIVITAMINS THER W-MINERALS COMBO TABLET (FP) PO SCH ×2 (10:17→13:32)
[2016-10-23] MEDS: amLODIPine BESYLATE 5 MG TABLET (FP) PO SCH ×2 (10:17→13:32)
[2016-10-23] MEDS: CHOLECALCIFEROL (VITAMIN D3) 1,000 UNIT TABLET (FP) PO SCH ×2 (10:17→13:31)
[2016-10-23] MEDS: DICLOFENAC SODIUM 25 MG TABLET.DR PO SCH ×2 (10:17→13:32)
--- NOTE | 2016-10-23 12:38 | PN ---
Progress Note, Physician History of Present Illness: PULMONARY ALERT,FEELING BETTER,LESS DYSPNEIC - Current Medication List Current Medications: Active Medications Acetaminophen (Tylenol -) 1,000 mg PO Q6H PRN PRN Reason: FEVER OR PAIN Last Admin: 10/21/16 16:31 Dose: 1,000 mg Amlodipine Besylate (Norvasc -) 5 mg PO DAILY [facility] Last Admin: 10/23/16 10:17 Dose: Not Given Aspirin (Asa -) 81 mg PO DAILY [facility] Last Admin: 10/23/16 10:16 Dose: Not Given Atorvastatin Calcium (Lipitor -) 20 mg PO HS [facility] Last Admin: 10/22/16 22:21 Dose: 20 mg Cholecalciferol (Vitamin D3 -) 2,000 unit PO DAILY [facility] Last Admin: 10/23/16 10:17 Dose: Not Given Clonidine (Catapres -) 0.1 mg PO DAILY [facility] Last Admin: 10/23/16 10:16 Dose: Not Given Diclofenac Sodium (Voltaren -) 100 mg PO DAILY [facility] Last Admin: 10/23/16 10:17 Dose: Not Given Enoxaparin Sodium (Lovenox -) 30 mg SQ DAILY [facility] Last Admin: 10/23/16 10:16 Dose: Not Given Multivitamins/Minerals (Theragran-M) 1 each PO DAILY [facility] Last Admin: 10/23/16 10:17 Dose: Not Given Ondansetron HCl (Zofran Injection) 4 mg IVPB Q8H PRN PRN Reason: NAUSEA AND/OR VOMITING Ramipril (Altace -) 10 mg PO DAILY [facility] Last Admin: 10/23/16 10:16 Dose: Not Given Tamsulosin HCl (Flomax -) 0.4 mg PO DAILY@0830 [facility] Last Admin: 10/23/16 08:30 Dose: Not Given - Objective Vital Signs: Vital Signs Temperature 97.8 F 10/23/16 08:37 Pulse Rate 62 10/23/16 08:37 Respiratory Rate 18 10/23/16 08:37 Blood Pressure 159/97 10/23/16 08:37 O2 Sat by Pulse Oximetry (%) 93 L 10/22/16 21:00 Constitutional: Yes: Well Nourished, Calm Eyes: Yes: WNL HENT: Yes: WNL Neck: Yes: WNL Cardiovascular: Yes: Regular Rate and Rhythm, S1, S2 Respiratory: Yes: Rales (FEW BIBASILAR CRACKLES) Gastrointestinal: Yes: Normal Bowel Sounds, Soft Extremities: Yes: WNL Edema: No Labs: CBC, BMP 10/23/16 05:43 10/23/16 05:43 Problem List - Problems (1) BPH (benign prostatic hyperplasia) Code(s): N40.0 - BENIGN PROSTATIC HYPERPLASIA WITHOUT LOWER URINRY TRACT SYMP (2) CAD (coronary artery disease) Code(s): I25.10 - ATHSCL HEART DISEASE OF [place] CORONARY ARTERY W/O ANG PCTRS Qualifiers: Coronary Disease-Associated Artery/Lesion type: [place] artery [place] vs. transplanted heart: [place] heart Associated angina: without angina Qualified Code(s): I25.10 - Atherosclerotic heart disease of [place] coronary artery without angina pectoris (3) Dizziness Code(s): R42 - DIZZINESS AND GIDDINESS (4) HTN (hypertension) Code(s): I10 - ESSENTIAL (PRIMARY) HYPERTENSION Qualifiers: Hypertension type: essential hypertension Qualified Code(s): I10 - Essential (primary) hypertension (5) Hyperlipidemia Code(s): E78.5 - HYPERLIPIDEMIA, UNSPECIFIED Qualifiers: Hyperlipidemia type: pure hypercholesterolemia Qualified Code(s): E78.00 - Pure hypercholesterolemia, unspecified; E78.0 - Pure hypercholesterolemia (6) Pre-syncope Code(s): R55 - SYNCOPE AND COLLAPSE (7) Pulmonary hypertension Code(s): I27.2 - OTHER SECONDARY PULMONARY HYPERTENSION (8) Exertional dyspnea Code(s): R06.09 - OTHER FORMS OF DYSPNEA (9) Diastolic dysfunction Code(s): I51.9 - HEART DISEASE, UNSPECIFIED Assessment/Plan MP DYSPNEA ? ASHD,DIASTOLIC DYSFUNCTION PULMONARY HTN HTN NEAR SYNCOPE HYPERCHOLESTEROLEMIA [place] ON CPAP PLAN CONT CURRENT CARDIAC MEDS CARDIAC W/U IN PROGRESS CPAP DR BRAND Problem List - Problems (1) BPH (benign prostatic hyperplasia) Code(s): N40.0 - BENIGN PROSTATIC HYPERPLASIA WITHOUT LOWER URINRY TRACT SYMP (2) CAD (coronary artery disease) Code(s): I25.10 - ATHSCL HEART DISEASE OF [place] CORONARY ARTERY W/O ANG PCTRS Qualifiers: Coronary Disease-Associated Artery/Lesion type: [place] artery [place] vs. transplanted heart: [place] heart Associated angina: without angina Qualified Code(s): I25.10 - Atherosclerotic heart disease of [place] coronary artery without angina pectoris (3) Dizziness Code(s): R42 - DIZZINESS AND GIDDINESS (4) HTN (hypertension) Code(s): I10 - ESSENTIAL (PRIMARY) HYPERTENSION Qualifiers: Hypertension type: essential hypertension Qualified Code(s): I10 - Essential (primary) hypertension (5) Hyperlipidemia Code(s): E78.5 - HYPERLIPIDEMIA, UNSPECIFIED Qualifiers: Hyperlipidemia type: pure hypercholesterolemia Qualified Code(s): E78.00 - Pure hypercholesterolemia, unspecified; E78.0 - Pure hypercholesterolemia (6) Pre-syncope Code(s): R55 - SYNCOPE AND COLLAPSE (7) Pulmonary hypertension Code(s): I27.2 - OTHER SECONDARY PULMONARY HYPERTENSION (8) Exertional dyspnea Code(s): R06.09 - OTHER FORMS OF DYSPNEA (9) Diastolic dysfunction Code(s): I51.9 - HEART DISEASE, UNSPECIFIED
[2016-10-23] MEDS ORDERED: PT OWN MED DRAWER 7, Y5N ONE (12:46)
[2016-10-23 14:55] VITALS: BP 163/87; PULSE 74; TEMP 98
--- NOTE | 2016-10-23 15:16 | EKG ---
Test Reason : Blood Pressure : / mmHG Vent. 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
--- NOTE | 2016-10-23 17:49 | DS ---
Physical Examination Vital Signs: Vital Signs Temperature 98.0 F 10/23/16 14:00 Pulse Rate 74 10/23/16 14:00 Respiratory Rate 20 10/23/16 14:00 Blood Pressure 163/87 10/23/16 14:00 O2 Sat by Pulse Oximetry (%) 93 L 10/23/16 08:35 Constitutional: Yes: No Distress Neck: Yes: Supple Cardiovascular: Yes: Regular Rate and Rhythm, S1, S2 Respiratory: Yes: CTA Bilaterally. No: Accessory Muscle Use Gastrointestinal: Yes: Normal Bowel Sounds, Soft Neurological: Yes: Alert, Oriented Labs: CBC, BMP 10/23/16 05:43 10/23/16 05:43 Discharge Summary Reason For Visit: PRE SYNCOPE Current Active Problems BPH (benign prostatic hyperplasia) (Acute) CAD (coronary artery disease) (Acute) Diastolic dysfunction (Acute) Dizziness (Acute) Exertional dyspnea (Acute) HTN (hypertension) (Acute) Hyperlipidemia (Acute) Lightheaded (Acute) Pulmonary hypertension (Acute) Condition: Stable - Instructions Diet, Activity, Other Instructions: 2 Gm Na Referrals: Laila Mac MD [Primary Care Provider] - Disposition: HOME - Home Medications Comprehensive Discharge Medication List: Ambulatory Orders Aspirin [ASA -] 81 mg PO DAILY 02/04/16 Biotin 5,000 mcg PO DAILY 02/04/16 Cholecalciferol (Vitamin D3) [Vitamin D3 -] 2,000 unit PO DAILY 02/04/16 Glucosamine/D3/Boswellia Molly [Osteo Bi-Flex Caplet] 1 each PO DAILY 02/04/16 Multivit-Min/FA/Lycopen/Lutein [Centrum Silver Tablet] 1 each PO DAILY 02/04/16 Simvastatin [Zocor -] 40 mg PO HS 02/04/16 Tamsulosin HCl [Flomax -] 0.4 mg PO DAILY 02/04/16 Vit A/Vit C/Vit E/Zinc/Copper [Preservision Areds Softgel] 1 each PO DAILY 02/03 Chlorthalidone 25 mg PO DAILY 10/18/16 Clonidine HCl 0.1 mg PO DAILY 10/18/16 Diclofenac Sodium [Diclofenac Sodium ER] 100 mg PO DAILY 10/18/16 Ramipril 10 mg PO DAILY 10/18/16
--- NOTE | 2016-10-23 18:26 | PN ---
Progress Note, Physician History of Present Illness: Dizziness resolved, dyspnea improved. - Current Medication List Current Medications: Active Medications Acetaminophen (Tylenol -) 1,000 mg PO Q6H PRN PRN Reason: FEVER OR PAIN Last Admin: 10/21/16 16:31 Dose: 1,000 mg Amlodipine Besylate (Norvasc -) 5 mg PO DAILY [facility] Last Admin: 10/23/16 13:32 Dose: 5 mg Aspirin (Asa -) 81 mg PO DAILY [facility] Last Admin: 10/23/16 13:31 Dose: 81 mg Atorvastatin Calcium (Lipitor -) 20 mg PO HS [facility] Last Admin: 10/22/16 22:21 Dose: 20 mg Cholecalciferol (Vitamin D3 -) 2,000 unit PO DAILY [facility] Last Admin: 10/23/16 13:31 Dose: 2,000 unit Clonidine (Catapres -) 0.1 mg PO DAILY [facility] Last Admin: 10/23/16 13:32 Dose: 0.1 mg Diclofenac Sodium (Voltaren -) 100 mg PO DAILY [facility] Last Admin: 10/23/16 13:32 Dose: 100 mg Enoxaparin Sodium (Lovenox -) 30 mg SQ DAILY [facility] Last Admin: 10/23/16 13:34 Dose: 30 mg Multivitamins/Minerals (Theragran-M) 1 each PO DAILY [facility] Last Admin: 10/23/16 13:32 Dose: 1 each Ondansetron HCl (Zofran Injection) 4 mg IVPB Q8H PRN PRN Reason: NAUSEA AND/OR VOMITING Ramipril (Altace -) 10 mg PO DAILY [facility] Last Admin: 10/23/16 13:32 Dose: 10 mg Tamsulosin HCl (Flomax -) 0.4 mg PO DAILY@0830 [facility] Last Admin: 10/23/16 13:32 Dose: 0.4 mg - Objective Vital Signs: Vital Signs Temperature 98.0 F 10/23/16 14:00 Pulse Rate 74 10/23/16 14:00 Respiratory Rate 20 10/23/16 14:00 Blood Pressure 163/87 10/23/16 14:00 O2 Sat by Pulse Oximetry (%) 93 L 10/23/16 08:35 Constitutional: Yes: No Distress, Calm Neck: Yes: Supple Cardiovascular: Yes: Regular Rate and Rhythm Respiratory: Yes: Regular, Diminished Gastrointestinal: Yes: Normal Bowel Sounds, Soft, Abdomen, Obese Edema: No Labs: CBC, BMP 10/23/16 05:43 10/23/16 05:43 Problem List - Problems (1) HTN (hypertension) Code(s): I10 - ESSENTIAL (PRIMARY) HYPERTENSION Qualifiers: Hypertension type: essential hypertension Qualified Code(s): I10 - Essential (primary) hypertension (2) Pre-syncope Code(s): R55 - SYNCOPE AND COLLAPSE (3) Hyperlipidemia Code(s): E78.5 - HYPERLIPIDEMIA, UNSPECIFIED Qualifiers: Hyperlipidemia type: pure hypercholesterolemia Qualified Code(s): E78.00 - Pure hypercholesterolemia, unspecified; E78.0 - Pure hypercholesterolemia (4) Exertional dyspnea Code(s): R06.09 - OTHER FORMS OF DYSPNEA Assessment/Plan Echo: Normal LV size and fxn, mod AR P-Myoview: No ischemia, normal LVEF 1. Dizziness since resolved 2. Peripheral neuropathy vs lumbar/sacral spinal stenosis. 3. HTN/Hypertensive cardiovascular disease 4. Hyperlipidemia 5. Dyspnea on exertion with underlying history of obstructive sleep apnea and diastolic dysfunction with mild pulmonary hypertension, ruled out ischemia 6. Aortic valve regurgitation PLAN: 1. ASA 81 qd, Lipitor 20 qhs, clonidine 0.1 qd, Norvasc 5 qd and Altace 10 qd. 2. Continue CPAP nightly 3. D/c planning with f/u in office
--- NOTE | 2016-10-23 19:06 | PN ---
Progress Note (short form) - Note Progress Note: NEUROLOGY FOLLOW-UP: Events and MRI reviewed. Patient examined. Discussed with patient and his . No recurrent vertigo but still unsteady. Walking with walker, independently. Has a cane at home. Patient again asserts that his gait has deteriorated precipitously. He denies neck or low back pain. MRI of brain (reviewed): Scattered microvascular changes and mild atrophy c/w age but NO discrete cerebellar or brainstem strokes. MYRIAM: No bruits. Cor reg. Decreased neck ROM. Neg SLR. NEURO: No nystagmus Mild B/L ankle dorsiflexion weakness. Areflexic in legs. Decreased vibration both feet. Romberg ++ Gait: Shuffling without walker, stable with. Improved. IMP: Peripheral neuropathy vs LS spinal stenosis. Of concern is the sudden deterioration without cause. Acquired Neuropathy (GBS, CIDP)? Myelopathy? Plan: Out patient neuro f/u and EMG/NCS on expedited basis. Thank you very much, Sarkis Llanos MD
== END 2016-10-23 18:56 | disposition home or self-care (01) | DRG 312 ==
LOC: JER 16:09 → JERBED 17:59 → J4S 20:18
PROVIDERS: ADMIT Internal Medicine; ATTEND Internal Medicine
DX: R55 Syncope and collapse (principal); I25.10 Atherosclerotic heart disease of native coronary artery without angina pectoris; N40.0 Benign prostatic hyperplasia without lower urinary tract symptoms; G62.89 Other specified polyneuropathies; E78.00 Pure hypercholesterolemia, unspecified; R06.09 Other forms of dyspnea; M17.10 Unilateral primary osteoarthritis, unspecified knee; G47.33 Obstructive sleep apnea (adult) (pediatric); I27.2 Other secondary pulmonary hypertension; I35.1 Nonrheumatic aortic (valve) insufficiency; M48.06 Spinal stenosis, lumbar region; I11.9 Hypertensive heart disease without heart failure; R42 Dizziness and giddiness
CPT/HCPCS: 36415; 70450-TC; 70551-TC; 71010-TC; 71020-TC; 78452-TC; 80053; 81003; 81015; 83880; 84484; 85025; 85027; 85379; 85610; 87086; 93005; 93010; 93017; 93306-TC; 94660; 96360; 97116-GP; 97161-GP; 99284-25; A9502

== ENCOUNTER 2017-08-13 13:37 | Emergency (ER) | payer OTHER ==
[2017-08-13 13:42] VITALS: BP 151/83; PULSE 83; TEMP 97.8; BMI 31.1
--- NOTE | 2017-08-13 14:46 | PDOC ---
History of Present Illness - General Chief Complaint: Edema Stated Complaint: LT FOOT PAIN Time Seen by Provider: 08/13/17 13:45 - History of Present Illness Initial Comments: 87-year-old male with a past medical history significant for hypertension presents for evaluation of left foot pain 1 day. He points to the first MTP joint as the area of his discomfort pain is described as sharp exacerbated with activity relieved with rest and free of radiation. No history of gout. No other symptoms. 08/13/17 14:46 Past History - Past Medical History Allergies/Adverse Reactions: Allergies Allergy/AdvReac Type Severity Reaction Status Date / Time Penicillins Allergy Unknown Rash Verified 10/18/16 16:16 Home Medications: Ambulatory Orders Aspirin [ASA -] 81 mg PO DAILY 02/04/16 Biotin 5,000 mcg PO DAILY 02/04/16 Cholecalciferol (Vitamin D3) [Vitamin D3 -] 2,000 unit PO DAILY 02/04/16 Glucosamine/D3/Boswellia Molly [Osteo Bi-Flex Caplet] 1 each PO DAILY 02/04/16 Multivit-Min/FA/Lycopen/Lutein [Centrum Silver Tablet] 1 each PO DAILY 02/04/16 Simvastatin [Zocor -] 40 mg PO HS 02/04/16 Tamsulosin HCl [Flomax -] 0.4 mg PO DAILY 02/04/16 Vit A/Vit C/Vit E/Zinc/Copper [Preservision Areds Softgel] 1 each PO DAILY 02/03 Chlorthalidone 25 mg PO DAILY 10/18/16 Clonidine HCl 0.1 mg PO DAILY 10/18/16 Diclofenac Sodium [Diclofenac Sodium ER] 100 mg PO DAILY 10/18/16 Ramipril 10 mg PO DAILY 10/18/16 Anemia: No Asthma: No Cancer: No Cardiac Disorders: No CVA: No COPD: No Dementia: No Diabetes: No Disorders: No HTN: Yes Hypercholesterolemia: No Kidney Stones: Yes Liver Disease: No Seizures: No Thyroid Disease: Yes (H/O STONES) - Surgical History Abdominal Surgery: No Cardiac Surgery: No Cholecystectomy: No Lung Surgery: No Neurologic Surgery: No Orthopedic Surgery: No - Suicide/Smoking/Psychosocial Hx Smoking History: Never smoked Have you smoked in the past 12 months: No If you are a former smoker, when did you quit?: 50YRS AGO Hx Alcohol Use: No Drug/Substance Use Hx: No Substance Use Type: None Hx Substance Use Treatment: No Review of Systems - Review of Systems Musculoskeletal: Yes: Joint Pain All Other Systems: Reviewed and Negative *Physical Exam - Vital Signs Last Vital Signs Temp Pulse Resp BP Pulse Ox 97.8 F 83 20 151/83 96 08/13/17 13:40 08/13/17 13:40 08/13/17 13:40 08/13/17 13:40 08/13/17 13:40 - Physical Exam Comments: There is mild erythema over the left MTPJ. Mild warmth. There is no induration fluctuance or hypersensitivity on the skin. There is pain with motion. No gross sensorimotor deficits. The rest of the foot is nontender. Full nonpainful range of motion of the ankle. 08/13/17 14:48 Medical Decision Making - Medical Decision Making The sudden onset of symptoms I believe this is gout versus pseudogout and not a cellulitis. I have ordered a UA level. 08/13/17 14:49 *DC/Admit/Observation/Transfer Diagnosis at time of Disposition: Gout attack - Discharge Dispostion Disposition: HOME Condition at time of disposition: Stable Decision to Admit order: No - Referrals Referrals: Laila Mac MD [Primary Care Provider] - - Patient Instructions Printed Discharge Instructions: DI for Gout, Gout Additional Instructions: Placed on a Medrol Dosepak which should help with your pain and swelling of your foot. Uric acid today was normal. However, this could still be a uric acid crystal gout attack. The other possibility is pseudogout. It's very unlikely have an infection. I have not placed you on antibiotics. Return to the emergency room if your symptoms worsen or go unresolved within the next day or 2. In the meantime he should schedule follow-up with your primary care physician within the next day or 2. - Post Discharge Activity
== END 2017-08-13 15:11 | disposition home or self-care (01) ==
LOC: JERFT 13:37
DX: M10.9 Gout, unspecified (principal); I10 Essential (primary) hypertension; Z87.891 Personal history of nicotine dependence
CPT/HCPCS: 36415; 84550; 99281-25

== ENCOUNTER 2018-01-08 00:33 | Emergency (ER) | payer OTHER ==
[2018-01-08 00:39] VITALS: BMI 29.8
--- NOTE | 2018-01-08 01:26 | PDOC ---
Attending Attestation - HPI HPI: 01/08/18 01:55 The patient is a 87 year old male, with a significant past medical history of HTN and kidney stones, who presents to the ED complaining of a swollen left foot / ankle onset today. He reports that he awoke with the swelling. He states that he does have some discomfort but is able to ambulate. He reports that he is still working and is very active, driving roughly 1 hour everyday to work. He denies any recent travel or trauma to the area. He denies any calf tenderness. He denies taking any medications prior to coming to the ED. The patient denies chest pain, shortness of breath, headache and dizziness. Denies fever, chills, nausea, vomiting, diarrhea or constipation. Denies dysuria , frequency, urgency and hematuria. Allergies: Penicillins Past surgical history: None reported Social History: No alcohol, tobacco or drug use reported <Robert Kaur - Last Filed: 01/08/18 01:55> - Resident Resident Name: Wong Schaefer - ED Attending Attestation I have performed the following: I have examined & evaluated the patient, The case was reviewed & discussed with the resident, I agree w/resident's findings & plan, Exceptions are as noted - Physicial Exam PE: 01/08/18 02:11 Patient is awake and alert, nontoxic-appearing, hypertensive Normocephalic, atraumatic PERRLA, EOMI CTA RRR Left lower extremity is edematous with +2 pitting edema extending up to the knee joint with diffuse excoriations and erythroderma; neurovascularly intact distally; bilateral onychomycosis is noted. - Medical Decision Making 01/08/18 02:12 87-year-old male with history of hypertension and hypercholesterolemia presents with atraumatic left lower extremity swelling and erythema. Patient is afebrile and hypertensive. Doppler ultrasound left lower extremity reveals no evidence of DVT. I suspect cellulitis. Will obtain CBC/CMP/d-dimer. Will treat with by mouth Keflex. D-dimer is noted to be elevated, patient will return in 1 week for a repeat Doppler ultrasound. <Michael Salinas - Last Filed: 01/08/18 02:12>
--- NOTE | 2018-01-08 02:19 | PDOC ---
History of Present Illness - General Chief Complaint: Edema Stated Complaint: SWELLING,LT FOOT Time Seen by Provider: 01/08/18 00:57 History Source: Patient Exam Limitations: No Limitations - History of Present Illness Initial Comments: 01/08/18 02:13 87 yo male pmh of HTN, HLD and recent visit for left lower limb swelling presents to the ED with sudden onset left lower limb swelling after waking up from a nap at 10 pm tonight. Pt is a very active 87 yo, drives 1 hour every week day to work, no smoking hx, no hx of DVT. Denies CP, SOB, abdominal pain, calf tenderness but admits to pain around the left great toe. 01/08/18 05:41 on further questioning, pt states he becomes intermittently SOB with positional changes Past History - Past Medical History Allergies/Adverse Reactions: Allergies Allergy/AdvReac Type Severity Reaction Status Date / Time Penicillins Allergy Unknown Rash Verified 01/08/18 07:03 Home Medications: Ambulatory Orders Aspirin [ASA -] 81 mg PO DAILY 02/04/16 Biotin 5,000 mcg PO DAILY 02/04/16 Cholecalciferol (Vitamin D3) [Vitamin D3 -] 2,000 unit PO DAILY 02/04/16 Glucosamine/D3/Boswellia Molly [Osteo Bi-Flex Caplet] 1 each PO DAILY 02/04/16 Multivit-Min/FA/Lycopen/Lutein [Centrum Silver Tablet] 1 each PO DAILY 02/04/16 Simvastatin [Zocor -] 40 mg PO HS 02/04/16 Tamsulosin HCl [Flomax -] 0.4 mg PO DAILY 02/04/16 Vit A/Vit C/Vit E/Zinc/Copper [Preservision Areds Softgel] 1 each PO DAILY 02/03 Chlorthalidone 25 mg PO DAILY 10/18/16 Clonidine HCl 0.1 mg PO DAILY 10/18/16 Diclofenac Sodium [Diclofenac Sodium ER] 100 mg PO DAILY 10/18/16 Ramipril 10 mg PO DAILY 10/18/16 Miscellaneous Drug Not In Syst [Outpatient Lab Test] 1 each ASDIR #1 misc Anemia: No Asthma: No Cancer: No Cardiac Disorders: No CVA: No COPD: No Dementia: No Diabetes: No Disorders: No HTN: Yes Hypercholesterolemia: No Kidney Stones: Yes Liver Disease: No Seizures: No Thyroid Disease: Yes (H/O STONES) - Surgical History Abdominal Surgery: No Cardiac Surgery: No Cholecystectomy: No Lung Surgery: No Neurologic Surgery: No Orthopedic Surgery: No - Suicide/Smoking/Psychosocial Hx Smoking History: Never smoked Have you smoked in the past 12 months: No If you are a former smoker, when did you quit?: 50YRS AGO Hx Alcohol Use: No Drug/Substance Use Hx: No Substance Use Type: None Hx Substance Use Treatment: No Review of Systems - Review of Systems Constitutional: No: Chills, Fever Respiratory: Yes: Shortness of Breath (intermittent ) Cardiac (ROS): No: Chest Pain ABD/GI: No: Nausea, Vomiting : No: Burning, Dysuria Integumentary: Yes: Other (left foot swelling redness and pain up to the mid calf) Neurological: No: Numbness, Weakness *Physical Exam - Vital Signs Last Vital Signs Temp Pulse Resp BP Pulse Ox 97.4 F L 87 18 175/76 H 96 01/08/18 00:36 01/08/18 00:36 01/08/18 00:36 01/08/18 00:36 01/08/18 00:36 - Physical Exam General Appearance: Yes: Nourished, Appropriately Dressed. No: Apparent Distress HEENT: positive: EOMI Respiratory/Chest: positive: Lungs Clear, Normal Breath Sounds. negative: Accessory Muscle Use Cardiovascular: positive: Regular Rhythm, Regular Rate, S1, S2. negative: Edema , JVD, Murmur Vascular Pulses: Dorsalis-Pedis (R): 4+, Doralis-Pedis (L): 4+ Gastrointestinal/Abdominal: positive: Flat, Soft. negative: Pulsatile Mass, Guarding, Rebound, Tenderness Extremity: positive: Normal Capillary Refill, Swelling (left lower ext +1 pitting), Erythema (left lower ext), Other (pain with palpation to left great toe). negative: Calf Tenderness Integumentary: positive: Normal Color, Dry, Warm Neurologic: positive: Fully Oriented, Alert, Normal Mood/Affect, Normal Response ED Treatment Course - LABORATORY CBC & Chemistry Diagram: 01/08/18 02:53 01/08/18 02:53 - RADIOLOGY Radiology Studies Ordered: Category Date Time Status DUPLEX VASCUL US-1 LEG [US] Stat Ultrasound 01/08/18 01:30 Taken Medical Decision Making - Medical Decision Making 01/08/18 05:47 87 yo male presents with sudden onset left calf, foot and ankle swelling since 10 pm along with pain to the left great toe PIP joint. Patient admits to intermittent SOB with positional changes and is a poor historian with regards to timeline and extent of SOB. Exam shows AOX3 NAD, heart and Lungs normal Left lower ext +1 pitting edema and redness with equal ROM and Pulses compared bilaterally. No calf tenderness Pt received total of 1.8mg Colchicine for suspected gout. DDX: DVT, Gout, Cellulitis D-Dimer done for low risk r/o PE after negative Duplex found for DVT On further questioning pt found to be SOB. Chest CTA ordered. If negative, send home with 1 week follow up Duplex of left lower ext to r/o DVT again D Dimer elevated otherwise labs normal including uric acid 01/08/18 08:15 Keflex 500mg BID for 5 days for cellulitis. 0.6 mg Colchicine 1X per day for 2 days *DC/Admit/Observation/Transfer - Prescriptions Prescriptions: Miscellaneous Drug Not In Syst [Outpatient Lab Test] 1 each ASDIR #1 misc - Referrals Referrals: Laila Mac MD [Primary Care Provider] - - Patient Instructions - Post Discharge Activity
[2018-01-08 03:15] LABS: EOS % 6.6 % (0-4.5); HEMATOCRIT 43.4 % (35.4-49); HEMOGLOBIN 14.4 GM/dL (11.7-16.9); LYMPH % 34.8 % (8-40); MCH 30.3 pg (25.7-33.7); MCHC 33.1 g/dl (32.0-35.9); MEAN CELL VOLUME 91.8 fl (80-96); NEUT % 46.6 % (42.8-82.8); PLATELET COUNT 173 K/MM3 (134-434); RBC 4.73 M/mm3 (4.00-5.60); RDW 13.8 % (11.9-15.9); WHITE BLOOD COUNT 7.2 K/mm3 (4.0-10.0)
[2018-01-08 03:44] LABS: ALBUMIN 3.6 g/dl (3.4-5.0); ALK PHOS 121 U/L (45-117); ANION GAP 4 MMOL/L (8-16); BILIRUBIN,TOTAL 0.3 mg/dL (0.2-1); BLOOD UREA NITROGEN 24 mg/dL (7-18); CALCIUM 9.2 mg/dL (8.5-10.1); CHLORIDE 110 mmol/L (98-107); CO2 26 mmol/L (21-32); CREATININE 1.2 mg/dL (0.55-1.3); GLUCOSE,RANDOM 97 mg/dL (74-106); POTASSIUM 4.8 mmol/L (3.5-5.1); SGOT/AST 18 U/L (15-37); SGPT/ALT 23 U/L (13-61); SODIUM 140 mmol/L (136-145); TOT PROT 6.8 g/dl (6.4-8.2)
[2018-01-08 04:22] LABS: URINE APPEARANCE CLEAR; URINE BILIRUBIN NEGATIVE (<2.0 mg/dL); URINE COLOR YELLOW; URINE GLUCOSE (UA) NEGATIVE (NEGATIVE); URINE KETONE NEGATIVE (NEGATIVE); URINE LEUK ESTERASE NEGATIVE (NEGATIVE); URINE NITRITE NEGATIVE (NEGATIVE); URINE PROTEIN 2+ (NEGATIVE); URINE UROBILINOGEN NEGATIVE mg/dL (0.2-1.0)
[2018-01-08 04:29] LABS: EPI CELLS RARE /HPF (FEW); URINE BACTERIA RARE /hpf (NONE SEEN); URINE HYALINE CAST 1 /lpf; URINE MUCUS FEW
[2018-01-08] MEDS ORDERED: COLCHICINE 0.6 MG TABLET (FP) PO ONE ×2 (05:16→06:16)
[2018-01-08] MEDS ORDERED: COLCHICINE 0.6 MG TABLET (FP) ONE (05:49)
--- NOTE | 2018-01-08 08:35 | PDOC ---
*Physical Exam - Vital Signs Last Vital Signs Temp Pulse Resp BP Pulse Ox 97.4 F L 87 18 175/76 H 96 01/08/18 00:36 01/08/18 00:36 01/08/18 00:36 01/08/18 00:36 01/08/18 00:36 ED Treatment Course - LABORATORY CBC & Chemistry Diagram: 01/08/18 02:53 01/08/18 02:53 - ADDITIONAL ORDERS Additional order review: Laboratory Results 01/08/18 01/08/18 01/08/18 05:18 04:04 02:53 D-Dimer Sodium Potassium Chloride Carbon Dioxide Anion Gap BUN Creatinine Creat Clearance w eGFR Random Glucose Uric Acid 6.5 Calcium Total Bilirubin AST ALT Alkaline Phosphatase B-Natriuretic Peptide 502.2 H Total Protein Albumin Urine Color Yellow Urine Appearance Clear Urine pH 5.0 Ur Specific [place] 1.020 Urine Protein 2+ H Urine Glucose (UA) Negative Urine Ketones Negative Urine Blood 1+ H Urine Nitrite Negative Urine Bilirubin Negative Urine Urobilinogen Negative Ur Leukocyte Esterase Negative Urine WBC (Auto) 3 Urine RBC (Auto) 18 Ur Epithelial Cells Rare Urine Bacteria Rare Hyaline Casts 1 Urine Mucus Few 01/08/18 01/08/18 02:53 02:53 D-Dimer 1526 H Sodium 140 Potassium 4.8 Chloride 110 H Carbon Dioxide 26 Anion Gap 4 L BUN 24 H Creatinine 1.2 Creat Clearance w eGFR 57.01 Random Glucose 97 Uric Acid Calcium 9.2 Total Bilirubin 0.3 AST 18 ALT 23 Alkaline Phosphatase 121 H B-Natriuretic Peptide Total Protein 6.8 Albumin 3.6 Urine Color Urine Appearance Urine pH Ur Specific [place] Urine Protein Urine Glucose (UA) Urine Ketones Urine Blood Urine Nitrite Urine Bilirubin Urine Urobilinogen Ur Leukocyte Esterase Urine WBC (Auto) Urine RBC (Auto) Ur Epithelial Cells Urine Bacteria Hyaline Casts Urine Mucus 01/08/18 02:53 RBC 4.73 MCV 91.8 MCHC 33.1 RDW 13.8 MPV 10.0 Neutrophils % 46.6 D Lymphocytes % 34.8 D Monocytes % 11.0 H Eosinophils % 6.6 H D Basophils % 1.0 - Medications Given in the ED: ED Medications Discontinued Medications Generic Name Dose Route Start Last Admin Trade Name Freq PRN Reason Stop Dose Admin Colchicine 1.2 mg 01/08/18 05:16 01/08/18 05:45 Colcrys - PO 01/08/18 05:17 1.2 mg ONCE ONE Administration Colchicine 0.6 mg 01/08/18 06:16 01/08/18 06:25 Colcrys - PO 01/08/18 06:17 0.6 mg ONCE ONE Administration Medical Decision Making - Medical Decision Making 01/08/18 08:30 Case signed out to me by Dr. Schaefer. Awaiting read for CTA chest at this time to r/o PE 01/08/18 08:59 CTA negative for PE. R lung base nodule 1cm in size seen. Pt told to f/u nodule in [address] Pt told to finish antibiotics (keflex) and colchicine that was prescribed to him. Pt educated on warning symptoms of PE / DVT and told to come back to ER if he feels any of them (including but not limited to chest pain, SOB, irregular heart rate, palpitations, heart racing, LE swelling or pain or erythema). Pt also told to f/u with Dr. Mac (PCP) within 1 week. Pt instructed to get Duplex LLE U/S in 1 week script given. Instructions also given to daughter, Lillie, on phone. *DC/Admit/Observation/Transfer Diagnosis at time of Disposition: Lower extremity cellulitis - Discharge Dispostion Disposition: HOME Condition at time of disposition: Stable Decision to Admit order: No - Prescriptions Prescriptions: Cephalexin [Keflex] 500 mg PO BID #10 capsule Colchicine 0.6 mg PO DAILY #2 capsule Miscellaneous Drug Not In Syst [Outpatient Lab Test] 1 each ASDIR #1 misc - Referrals Referrals: Laila Mac MD [Primary Care Provider] - - Patient Instructions - Post Discharge Activity
--- NOTE | 2018-01-08 09:20 | EKG ---
Test Reason : Blood Pressure : / mmHG Vent. Rate : 072 BPM Atrial Rate : 072 BPM P-R Int : 200 ms QRS Dur : 088 ms QT Int : 400 ms P-R-T Axes : 018 -48 053 degrees QTc Int : 438 ms NORMAL SINUS RHYTHM LEFT AXIS DEVIATION ABNORMAL ECG WHEN COMPARED WITH ECG OF 20-OCT-2016 15:58, CRITERIA FOR ANTEROSEPTAL INFARCT ARE NO LONGER PRESENT Confirmed by JAMES FERRERA, HUBERT ([id number]) on 01/08/2018 9:20:31 AM Referred By: Confirmed By:HUBERT RAMIREZ MD
[2018-01-08 09:42] VITALS: BP 143/56; PULSE 75; TEMP 97.6
--- NOTE | 2018-01-10 18:05 | EKG ---
Test Reason : Blood Pressure : / mmHG Vent. Rate : 075 BPM Atrial Rate : 075 BPM P-R Int : 194 ms QRS Dur : 092 ms QT Int : 392 ms P-R-T Axes : 028 -51 074 degrees QTc Int : 437 ms SINUS RHYTHM WITH PREMATURE SUPRAVENTRICULAR COMPLEXES LEFT AXIS DEVIATION POSSIBLE ANTEROSEPTAL INFARCT , AGE UNDETERMINED ABNORMAL ECG WHEN COMPARED WITH ECG OF 08-JAN-2018 02:35, PREMATURE SUPRAVENTRICULAR COMPLEXES ARE NOW PRESENT BORDERLINE CRITERIA FOR ANTEROSEPTAL INFARCT ARE NOW PRESENT Confirmed by HUBERT RAMIREZ MD ([id number]) on 01/10/2018 6:05:15 PM Referred By: Confirmed By:HUBERT RAMIREZ MD
== END 2018-01-08 09:46 | disposition home or self-care (01) ==
LOC: JER 00:33
DX: L03.116 Cellulitis of left lower limb (principal); M10.9 Gout, unspecified; I10 Essential (primary) hypertension; E78.00 Pure hypercholesterolemia, unspecified; Z87.442 Personal history of urinary calculi
CPT/HCPCS: 36415; 71046-TC-FY; 71275-TC; 80053; 81003; 81015; 83880; 84550; 85025; 85379; 87040; 93005; 93010; 93971-TC; 99282-25

== ENCOUNTER 2018-04-08 19:36 | Emergency (ER) | payer OTHER ==
[2018-04-08 19:47] VITALS: BP 146/84; PULSE 74; TEMP 98.3; BMI 29.0
[2018-04-08] MEDS ORDERED: DIPHTH,PERTUSS(ACELL),TET 0.5 ML DISP.SYRIN IM ONE ×2 (19:48→19:57)
--- NOTE | 2018-04-08 19:48 | PDOC ---
Rapid Medical Evaluation Chief Complaint: Injury Medical Evaluation: Allergies Allergy/AdvReac Type Severity Reaction Status Date / Time Penicillins Allergy Unknown Rash Verified 01/08/18 07:03 I have performed a brief in-person evaluation of this patient. The patient presents with a chief complaint of: Head lac s/p fall today; chair gave out, causing patient to fall back, hitting back of head; denies LOC; only on baby ASA, on no other blood thinners; denies any complaints currently Pertinent physical exam findings: +Lac to posterior scalp I have ordered the following: Tdap, CT head The patient will proceed to the ED for further evaluation. 04/08/18 19:47
--- NOTE | 2018-04-08 20:54 | PDOC ---
History of Present Illness - General Chief Complaint: Injury Stated Complaint: LACERATION Time Seen by Provider: 04/08/18 19:46 - History of Present Illness Initial Comments: The patient is an 87M w/ a history of HTN, HLD, and gout who presents for evaluation s/p fall from chair. The patient reports that he was sitting in a chair which broke. He fell backwards, hitting his head, but denies LOC. Patient denies any changes in sensation or weakness. Denies history of recent falls or illness. Per patient's daughter, the patient has short term memory deficits 04/08/18 21:01 Past History - Past Medical History Allergies/Adverse Reactions: Allergies Allergy/AdvReac Type Severity Reaction Status Date / Time Penicillins Allergy Unknown Rash Verified 04/08/18 19:47 Home Medications: Ambulatory Orders Aspirin [ASA -] 81 mg PO DAILY 02/04/16 Cholecalciferol (Vitamin D3) [Vitamin D3 -] 2,000 unit PO DAILY 02/04/16 Simvastatin [Zocor -] 40 mg PO HS 02/04/16 Vit A/Vit C/Vit E/Zinc/Copper [Preservision Areds Softgel] 1 each PO DAILY 02/03 Chlorthalidone 25 mg PO DAILY 10/18/16 Clonidine HCl 0.1 mg PO DAILY 10/18/16 Ramipril 10 mg PO DAILY 10/18/16 Anemia: No Asthma: No Cancer: No Cardiac Disorders: No CVA: No COPD: No CHF: No Dementia: No Diabetes: No Disorders: No HTN: Yes Hypercholesterolemia: No Kidney Stones: Yes Liver Disease: No Seizures: No Thyroid Disease: Yes (H/O STONES) - Surgical History Abdominal Surgery: No Cardiac Surgery: No Cholecystectomy: No Lung Surgery: No Neurologic Surgery: No Orthopedic Surgery: No - Suicide/Smoking/Psychosocial Hx Smoking History: Never smoked Have you smoked in the past 12 months: No If you are a former smoker, when did you quit?: 50YRS AGO Hx Alcohol Use: No Drug/Substance Use Hx: No Substance Use Type: None Hx Substance Use Treatment: No Review of Systems - Review of Systems Able to Perform ROS?: Yes Comments:: GENERAL/CONSTITUTIONAL: No fever or chills. No weakness HEAD, EYES, EARS, NOSE AND THROAT: No change in vision. No ear pain or discharge. No sore throat CARDIOVASCULAR: No chest pain or shortness of breath RESPIRATORY: Denies cough, hemoptysis GASTROINTESTINAL: No nausea, vomiting, diarrhea or constipation GENITOURINARY: No dysuria, frequency, or change in urination MUSCULOSKELETAL: No joint or muscle swelling or pain. No back pain SKIN: per HPI NEUROLOGIC: No vertigo, loss of consciousness, or change in strength/sensation ENDOCRINE: No increased thirst. No abnormal weight change HEMATOLOGIC/LYMPHATIC: No anemia, easy bleeding, or history of blood clots ALLERGIC/IMMUNOLOGIC: No hives or skin allergy 04/08/18 20:53 Is the patient limited Indonesian proficient: No *Physical Exam - Vital Signs Last Vital Signs Temp Pulse Resp BP Pulse Ox 98.3 F 74 18 146/84 94 L 04/08/18 19:45 04/08/18 19:45 04/08/18 19:45 04/08/18 19:45 04/08/18 19:45 - Physical Exam Comments: GENERAL: Awake, alert, and fully oriented, in no acute distress HEAD: Approximately 2.5cm, linear, simple, left parietal scalp laceration w/o active hemorrhage EYES: PERRLA, EOMI, sclera anicteric, conjunctiva clear ENT: Hearing grossly normal, nares patent, oropharynx clear without exudates. Moist mucosa LUNGS: No distress, speaks full sentences, clear to auscultation bilaterally HEART: Regular rate and rhythm, normal S1 and S2, no murmurs appreciated, peripheral pulses normal and equal bilaterally ABDOMEN: Soft, nontender, normoactive bowel sounds. No guarding, no rebound EXTREMITIES : Normal inspection, Normal range of motion, no edema. No clubbing or cyanosis NEUROLOGICAL: Cranial nerves II through XII grossly intact. Normal speech, normal gait, no focal sensorimotor deficits SKIN: Approximately 2.5cm, linear, simple, left parietal scalp laceration w/o active hemorrhage 04/08/18 20:53 Moderate Sedation - Procedure Monitoring Vital Signs: Procedure Monitoring Vital Signs Temperature 98.3 F 04/08/18 19:45 Pulse Rate 74 04/08/18 19:45 Respiratory Rate 18 04/08/18 19:45 Blood Pressure 146/84 04/08/18 19:45 O2 Sat by Pulse Oximetry (%) 94 L 04/08/18 19:45 Procedures - Laceration/Wound Repair Right Head Wound Length: to 2.5 cm Wound Explored: clean Wound's Depth, Shape: superficial Irrigated w/ Saline: Yes Anesthesia: 1% Lidocaine Wound Repaired With: Jordan ED Treatment Course - Medications Given in the ED: ED Medications Discontinued Medications Generic Name Dose Route Start Last Admin Trade Name Sandra PRN Reason Stop Dose Admin Diphtheria/Tetanus/Acell Pertussis 0.5 ml 04/08/18 19:48 04/08/18 20:01 Boostrix - IM 04/08/18 19:49 0.5 ml .ONCE ONE Administration Medical Decision Making - Medical Decision Making The patient is an 87M w/ a history of HTN, HLD, and gout who presents for evaluation s/p fall from chair w/ subsequent head lac ED Course CT head neg for acute pathology Scalp laceration repaired w/ raul Plan for D/C w/ PCP f/u Wound care instructions given Discharge instructions and return precautions given Patient in agreement and verbalizes understanding Dispo: home 04/08/18 20:53 *DC/Admit/Observation/Transfer Diagnosis at time of Disposition: Laceration of head Qualifiers: Encounter type: initial encounter Location of open wound of head: scalp Foreign body presence: without foreign body Qualified Code(s): S01.01XA - Laceration without foreign body of scalp, initial encounter - Discharge Dispostion Disposition: HOME Condition at time of disposition: Improved Decision to Admit order: No - Referrals Referrals: [facility] [place] [Provider Group] - Patient Instructions Printed Discharge Instructions: DI for Laceration Repair -- Raul Additional Instructions: You were seen in the Emergency Department for evaluation of a scalp laceration after fall from chair. You laceration was closed with 4 raul. Wash the area daily with soap and running water. Pat dry. You may place a dressing if needed. The raul will need to be removed in 7-10 days. Return to the Emergency Department if you have worsening pain, swelling, persistent drainage, puss draining from the wound, worsening confusion, weakness , changes in sensation, or any new/concerning symptoms. - Post Discharge Activity
--- NOTE | 2018-04-08 21:06 | PDOC ---
Attending Attestation - HPI HPI: The patient is an 87M w/ a history of HTN, HLD, and gout who presents for evaluation s/p fall from chair. The patient reports that he was sitting in a chair which broke. He fell backwards, hitting his head, and sustaining a small head laceration but denies LOC. Patient notes sore neck muscle soreness. Patient denies any changes in sensation or weakness. Denies history of recent falls or illness. - Physicial Exam PE: GENERAL: Awake, alert, and fully oriented, in no acute distress HEAD: 2.5 cm laceration in length, linear, at right posterior scalp. EYES: PERRLA, EOMI, sclera anicteric, conjunctiva clear ENT: Auricles normal inspection, hearing grossly normal, nares patent, oropharynx clear without exudates. Moist mucosa NECK: Normal ROM, supple, no lymphadenopathy, JVD, or masses LUNGS: Breath sounds equal, clear to auscultation bilaterally. No wheezes, and no crackles HEART: Regular rate and rhythm, normal S1 and S2, no murmurs, rubs or gallops ABDOMEN: Soft, nontender, normoactive bowel sounds. No guarding, no rebound. No masses EXTREMITIES: Normal range of motion, no edema. No clubbing or cyanosis. No cords, erythema, or tenderness. NEUROLOGICAL: Cranial nerves II through XII grossly intact. Normal speech, normal gait SKIN: See head section. Warm, Dry, normal turgor, no rashes or lesions noted. <Janet Cain - Last Filed: 04/08/18 21:34> - Resident Resident Name: Jluis Shaffer - ED Attending Attestation I have performed the following: I have examined & evaluated the patient, The case was reviewed & discussed with the resident, I agree w/resident's findings & plan, Exceptions are as noted - Medical Decision Making 04/08/18 21:06 I, Dr. Maddie Gilman, DO, attest that this document has been prepared under my direction and personally reviewed by me in its entirety. I further attest, that it accurately reflects all work, treatment, procedures and medical decision -making performed by me. 04/08/18 23:22 a/p: 87yo male with a fall backwards from a chair when the chair broke, and hit his head- no loc -scalp lac -head ct ordered from triage was negative -will update tetanus -will need raul and local wound care 04/08/18 23:24 raul placed pt stable for dc to home <Maddie Gilman - Last Filed: 04/08/18 23:26>
[2018-04-08] MEDS ORDERED: ACETAMINOPHEN 325 MG TABLET (FP) PO ONE (21:13)
[2018-04-08] MEDS ORDERED: ACETAMINOPHEN 325 MG TABLET (FP) ONE (21:20)
[2018-04-08] MEDS ORDERED: LIDOCAINE 1%/EPI 1:100000 (20 ML MULTI DOSE VIAL) ONE (21:23)
[2018-04-08] MEDS ORDERED: LIDOCAINE HCL 1%, 10 MG/ML (50 mL VIAL) INF ONE (21:24)
[2018-04-08] MEDS ORDERED: LIDOCAINE HCL 1%, 10 MG/ML (20ML VIAL) ONE (21:24)
== END 2018-04-08 22:15 | disposition home or self-care (01) ==
LOC: JER 19:36
PROC: 0HQ0XZZ Repair Scalp Skin, External Approach (ICD-10-PCS; principal; 2018-04-08)
DX: S01.01XA Laceration without foreign body of scalp, initial encounter (principal); W07.XXXA Fall from chair, initial encounter; Y93.89 Activity, other specified; Y92.89 Other specified places as the place of occurrence of the external cause
CPT/HCPCS: 12001; 70450-TC; 90715; 99282-25